=== PATIENT | male | born 1955 | race African-American/Black ===

== ENCOUNTER 2016-10-08 16:31 | Inpatient (IN) | payer OTHER ==
[~2016-10-08] VITALS: Ht 188 cm; Wt 89.4 kg
[~2016-10-08 16:31] MED LIST: ASPI-1035 PO; LOSA25TA12 PO
[2016-10-08] MEDS ORDERED: ASPIRIN 81MG TABLET PO STA (17:15)
[2016-10-08] MEDS ORDERED: FUROSEMIDE 40MG/4ML VIAL IV STA (17:15)
[2016-10-08 17:48] LABS: HEMOGLOBIN. 12.4 g/dL (14.0-18.0); MEAN CORPUSCULAR HEMOGLOBIN 27.7 pg (28.0-32.0); MEAN CORPUSCULAR HGB CONC 30.9 g/dL (31.0-37.0); MEAN CORPUSCULAR VOLUME 89.8 fL (80.0-94.0); MEAN PLATELET VOLUME 7.3 fl (7.4-10.4); PLATELET 210 x1000/uL (130-400); RED BLOOD CELL COUNT 4.45 mill/uL (4.7-6.1); RED CELL DISTRIBUTION WIDTH 18.1 % (11.6-14.6); WHITE BLOOD COUNT 12.2 x1000/uL (4.5-11.0)
[2016-10-08 17:50] LABS: CLARITY URINE CLEAR (CLEAR); COLOR URINE YELLOW (YELLOW); GLUCOSE URINE NEGATIVE (NEGATIVE); KETONES URINE NEGATIVE (NEGATIVE); LEUKOCYTE ESTERASE URINE NEGATIVE (NEGATIVE); NITRITE URINE NEGATIVE (NEGATIVE); OCCULT BLOOD URINE 1+ (NEGATIVE); PH URINE 5.5 (4.5-8.0); PROTEIN URINE 1+ (NEGATIVE); SPECIFIC GRAVITY URINE 1.017 (1.005-1.030)
[2016-10-08 17:51] LABS: DIFFERENTIAL COMMENT 1
[2016-10-08 17:55] LABS: INR 1.5; PARTIAL THROMBOPLASTIN TIME 36.7 sec (24.0-34.0); PROTHROMBIN TIME 15.1 sec
[2016-10-08 18:04] LABS: ALANINE AMINOTRANSFERASE 17 IU/L (13-61); ALBUMIN 3.5 g/dL (3.4-5.0); ANION GAP 14; CALCIUM 8.7 mg/dL (8.5-10.1); CARBON DIOXIDE 26 mEq/L (21-32); CHLORIDE 109 mEq/L (98-107); CREATINE KINASE 98 IU/L (39-308); INDEX HEMOLYSI 1 (1-3); INDEX ICTERIC 1 (1-4); INDEX LIPEMIC 1 (1-3); LIPASE 90 IU/L (73-393); NT PRO B-TYPE NATRIURETIC PEP 1586 pg/mL (5-125); TROPONIN I 0.03 ng/mL (0.00-0.04); UREA NITROGEN BLOOD 28 mg/dL (7-21); eGFR 54 mL/min (>60)
[2016-10-08 18:12] LABS: BACTERIA URINE NONE SEEN; SQUAMOUS EPITHELIAL CELL URINE RARE /lpf (RARE/1+); WBC URINE 0-2 /hpf (0-2)
[2016-10-08 18:18] LABS: ANISOCYTOSIS 1+; PLATELET ESTIMATE NORMAL
[2016-10-08 21:50] VITALS: BP 137/79
[2016-10-08 22:15] VITALS: BP 111/90
[2016-10-08] MEDS ORDERED: NA PHOS,M-B/NA PHOS,DI-BA ENEMA 118ML PR PRN (22:30)
[2016-10-08] MEDS ORDERED: DOCUSATE SODIUM 100MG CAPSULE PO PRN (22:30)
[2016-10-08] MEDS ORDERED: LORAZEPAM 2MG/ML CPJ IV PRN (22:30)
[2016-10-08] MEDS ORDERED: CLONIDINE 0.1MG TABLET PO PRN (22:30)
[2016-10-08] MEDS ORDERED: ACETAMINOPHEN 325MG TABLET PO PRN (22:30)
[2016-10-08] MEDS ORDERED: HYDROCODONE/ACETAMINOPHEN 10/325MG TABLET PO PRN (22:30)
[2016-10-08] MEDS ORDERED: GUAIFENESIN 200MG/10ML SUGAR FREE UDC PO PRN (22:30)
[2016-10-08] MEDS ORDERED: ONDANSETRON HCL 4MG/2ML VIAL IV PRN (22:30)
[2016-10-08] MEDS ORDERED: IPRATROPIUM/ALBUTEROL 0.5-3(2.5)MG/3ML NEB INH PRN (22:30)
[2016-10-08] MEDS ORDERED: MAGNESIUM/ALUMINUM HYDROXIDE/SIMETHICONE 30ML UDC PO PRN (22:30)
[2016-10-08] MEDS ORDERED: HYDROMORPHONE HCL/PF 2MG/ML CPJ IV PRN (22:30)
[2016-10-08] MEDS ORDERED: DIPHENHYDRAMINE 50MG/ML VIAL IV PRN (22:30)
[2016-10-09] MEDS ORDERED: INFLUENZA VIRUS VACCINE 0.5ML SYR IM ONE (02:15)
[2016-10-09] MEDS ORDERED: RIVA10TA PO (02:56)
[2016-10-09] MEDS ORDERED: LISI40TA4 PO (02:56)
[2016-10-09] MEDS ORDERED: DILT120C2 PO (02:56)
[2016-10-09] MEDS ORDERED: FURO-151 PO (02:56)
[2016-10-09] MEDS ORDERED: AMLO2.5T45 PO (02:56)
[2016-10-09] MEDS ORDERED: CARV6.2548 PO (02:56)
[2016-10-09 04:00] VITALS: BP 133/83
[2016-10-09 06:18] LABS: BASOPHILS % 0.6 % (0.0-2.0); EOSINOPHILS % 2.5 % (0.0-5.0); HEMATOCRIT. 37.9 % (42.0-52.0); HEMOGLOBIN. 12.1 g/dL (14.0-18.0); MEAN CORPUSCULAR HEMOGLOBIN 28.6 pg (28.0-32.0); MEAN CORPUSCULAR HGB CONC 31.8 g/dL (31.0-37.0); MEAN CORPUSCULAR VOLUME 89.9 fL (80.0-94.0); MEAN PLATELET VOLUME 7.7 fl (7.4-10.4); MONOCYTES % 8.4 % (2.0-8.0); NEUTROPHILS % 79.5 % (40.0-76.0); PLATELET 175 x1000/uL (130-400); RED BLOOD CELL COUNT 4.22 mill/uL (4.7-6.1); RED CELL DISTRIBUTION WIDTH 17.7 % (11.6-14.6); WHITE BLOOD COUNT 9.3 x1000/uL (4.5-11.0)
[2016-10-09 06:45] LABS: ALANINE AMINOTRANSFERASE 17 IU/L (13-61); ALBUMIN 3.3 g/dL (3.4-5.0); ANION GAP 11; CALCIUM 8.5 mg/dL (8.5-10.1); CARBON DIOXIDE 28 mEq/L (21-32); CHLORIDE 108 mEq/L (98-107); INDEX HEMOLYSI 1 (1-3); INDEX ICTERIC 1 (1-4); INDEX LIPEMIC 1 (1-3); LDL CHOLESTEROL 63 mg/dL (5-100); T4 FREE 1.66 ng/dL (0.76-1.46); TRIGLYCERIDE 43 mg/dL (0-150); TROPONIN I 0.03 ng/mL (0.00-0.04); UREA NITROGEN BLOOD 27 mg/dL (7-21); eGFR > 60 mL/min (>60)
[2016-10-09 06:46] LABS: HDL CHOLESTEROL 52 mg/dL (40-59)
[2016-10-09 06:49] LABS: CLARITY URINE CLEAR (CLEAR); COLOR URINE YELLOW (YELLOW); GLUCOSE URINE NEGATIVE (NEGATIVE); KETONES URINE NEGATIVE (NEGATIVE); LEUKOCYTE ESTERASE URINE NEGATIVE (NEGATIVE); NITRITE URINE NEGATIVE (NEGATIVE); OCCULT BLOOD URINE NEGATIVE (NEGATIVE); PH URINE 5.5 (4.5-8.0); PROTEIN URINE NEGATIVE (NEGATIVE); SPECIFIC GRAVITY URINE 1.023 (1.005-1.030)
[2016-10-09 08:00] VITALS: BP 121/80
[2016-10-09] MEDS: FUROSEMIDE 40MG/4ML VIAL IV SCH ×2 (08:10→16:16)
[2016-10-09] MEDS ORDERED: ASPIRIN 81MG EC TABLET PO SCH (09:00)
[2016-10-09] MEDS ORDERED: ENOXAPARIN 40MG/0.4ML SYR SUBCUT SCH (09:00)
[2016-10-09 12:48] VITALS: BP 100/59
[2016-10-09 16:21] VITALS: BP 130/82
[2016-10-09] MEDS ORDERED: RIVAROXABAN 10 MG TABLET PO SCH (17:00)
[2016-10-09 17:51] VITALS: BP 130/82
[2016-10-09 19:55] VITALS: BP 130/90
[2016-10-09] MEDS ORDERED: CARVEDILOL 3.125 MG TABLET PO SCH (21:00)
== END 2016-10-09 20:05 | DRG 194 ==
LOC: ER 16:54 → 8WST 19:53
PROVIDERS: ADMIT Internal Medicine; ATTEND Internal Medicine
DX: I13.0 Hypertensive heart and chronic kidney disease with heart failure and stage 1 through stage 4 chronic kidney disease, or unspecified chronic kidney disease (principal); I21.3 ST elevation (STEMI) myocardial infarction of unspecified site; N17.0 Acute kidney failure with tubular necrosis; I50.23 Acute on chronic systolic (congestive) heart failure; Z95.1 Presence of aortocoronary bypass graft; I48.1 Persistent atrial fibrillation; E78.5 Hyperlipidemia, unspecified; I25.10 Atherosclerotic heart disease of native coronary artery without angina pectoris; I25.5 Ischemic cardiomyopathy; N18.9 Chronic kidney disease, unspecified; Z79.01 Long term (current) use of anticoagulants; I25.2 Old myocardial infarction; Z95.810 Presence of automatic (implantable) cardiac defibrillator
CPT/HCPCS: 36415; 71010; 76770; 80048; 80053; 80061; 81001; 81003; 82550; 83605; 83690; 83880; 84439; 84443; 84484; 85025; 85610; 85730; 87040; 93005; 93970; 96374; 99285; J1650; J1940

== ENCOUNTER 2016-12-22 17:54 | Inpatient (IN) | payer OTHER ==
[~2016-12-22] VITALS: Ht 185.4 cm; Wt 94.3 kg
[~2016-12-22 17:54] MED LIST changes: +AMLO2.5T45 PO; -ASPI-1035 PO; +ASPI-1159 PO; +CARV6.2548 PO; +DILT120C2 PO; +FURO-151 PO; +LISI40TA4 PO; +RIVA10TA PO
[2016-12-22] MEDS ORDERED: FUROSEMIDE 40MG/4ML VIAL IV STA (18:31)
[2016-12-22] MEDS ORDERED: ALBUTEROL (0.083%) 2.5MG/3ML NEB HHN STA (18:31)
[2016-12-22] MEDS ORDERED: IPRATROPIUM BROMIDE (0.02%) 0.5MG/2.5ML NEB HHN STA (18:31)
[2016-12-22 19:08] LABS: EOSINOPHILS % 2.6 % (0.0-5.0); HEMATOCRIT. 40.6 % (42.0-52.0); HEMOGLOBIN. 12.9 g/dL (14.0-18.0); LYMPHOCYTES % 11.6 % (20.0-50.0); MEAN CORPUSCULAR HEMOGLOBIN 27.3 pg (28.0-32.0); MEAN PLATELET VOLUME 7.4 fl (7.4-10.4); MONOCYTES % 9.8 % (2.0-8.0); PLATELET 214 x1000/uL (130-400); RED BLOOD CELL COUNT 4.72 mill/uL (4.7-6.1); RED CELL DISTRIBUTION WIDTH 18.8 % (11.6-14.6)
[2016-12-22 19:16] LABS: INR 1.1; PARTIAL THROMBOPLASTIN TIME 27.9 sec (24.0-34.0); PROTHROMBIN TIME 11.5 sec
[2016-12-22 19:17] LABS: CHLORIDE 107 mEq/L (98-107)
[2016-12-22 19:24] LABS: CARBON DIOXIDE 30 mEq/L (21-32)
[2016-12-22 19:29] LABS: TROPONIN I 0.03 ng/mL (0.00-0.04)
[2016-12-22 19:31] LABS: GLUCOSE URINE NEGATIVE (NEGATIVE); KETONES URINE NEGATIVE (NEGATIVE); LEUKOCYTE ESTERASE URINE NEGATIVE (NEGATIVE); NITRITE URINE NEGATIVE (NEGATIVE); OCCULT BLOOD URINE NEGATIVE (NEGATIVE); PROTEIN URINE 1+ (NEGATIVE); SPECIFIC GRAVITY URINE 1.016 (1.005-1.030); UROBILINOGEN URINE 0.2 E.U./dL (0.2-1.0)
[2016-12-22 19:39] LABS: CLARITY URINE CLEAR (CLEAR); COLOR URINE YELLOW (YELLOW)
[2016-12-22] MEDS ORDERED: NITROGLYCERIN OINT 1GM/INCH UDPKT TD ONE (19:45)
[2016-12-22 22:17] VITALS: BP 168/91
[2016-12-23] MEDS ORDERED: IPRATROPIUM/ALBUTEROL 0.5-3(2.5)MG/3ML NEB HHN PRN
[2016-12-23 00:25] VITALS: BP 126/75
[2016-12-23 04:00] VITALS: BP 131/86
[2016-12-23 06:26] LABS: BASOPHILS % 0.6 % (0.0-2.0); EOSINOPHILS % 2.4 % (0.0-5.0); HEMATOCRIT. 40.5 % (42.0-52.0); HEMOGLOBIN. 12.7 g/dL (14.0-18.0); MEAN CORPUSCULAR HEMOGLOBIN 27.1 pg (28.0-32.0); MEAN CORPUSCULAR VOLUME 86.3 fL (80.0-94.0); MEAN PLATELET VOLUME 7.6 fl (7.4-10.4); MONOCYTES % 8.9 % (2.0-8.0); NEUTROPHILS % 73.1 % (40.0-76.0); PLATELET 206 x1000/uL (130-400); RED BLOOD CELL COUNT 4.69 mill/uL (4.7-6.1); RED CELL DISTRIBUTION WIDTH 17.9 % (11.6-14.6)
[2016-12-23 07:32] LABS: CREATINE KINASE MB FRACTION 1.6 ng/mL (0.5-3.6); TROPONIN I 0.03 ng/mL (0.00-0.04)
[2016-12-23 08:00] VITALS: BP 125/95
[2016-12-23] MEDS: CARVEDILOL 6.25 MG TABLET PO SCH ×2 (09:32→16:50)
[2016-12-23] MEDS: AMLODIPINE 2.5MG TABLET PO SCH (09:33)
[2016-12-23] MEDS: ASPIRIN 81MG EC TABLET PO SCH (09:34)
[2016-12-23] MEDS: FUROSEMIDE 40MG/4ML VIAL IVP SCH (09:34)
[2016-12-23] MEDS: LISINOPRIL 40MG TABLET PO SCH (09:34)
[2016-12-23] MEDS: DILTIAZEM HCL 120MG CAPSULE CD 24HR PO SCH (09:35)
[2016-12-23] MEDS ORDERED: ACETAMINOPHEN 325MG TABLET PO PRN (10:15)
[2016-12-23 12:00] VITALS: BP 128/85
[2016-12-23 16:00] VITALS: BP 125/85
[2016-12-23] MEDS: RIVAROXABAN 20 MG TABLET PO SCH (16:51)
[2016-12-23 20:00] VITALS: BP 109/74
[2016-12-24] VITALS: BP 105/75
[2016-12-24 01:23] LABS: CREATINE KINASE 45 IU/L (39-308)
[2016-12-24 04:00] VITALS: BP 112/71
[2016-12-24 08:00] VITALS: BP 125/72
[2016-12-24] MEDS: FUROSEMIDE 40MG/4ML VIAL IVP SCH (09:32)
[2016-12-24] MEDS: ASPIRIN 81MG EC TABLET PO SCH (09:33)
[2016-12-24] MEDS: AMLODIPINE 2.5MG TABLET PO SCH (09:33)
[2016-12-24] MEDS: CARVEDILOL 6.25 MG TABLET PO SCH ×2 (09:33→17:36)
[2016-12-24] MEDS: DILTIAZEM HCL 120MG CAPSULE CD 24HR PO SCH (09:33)
[2016-12-24] MEDS: LISINOPRIL 40MG TABLET PO SCH (09:34)
[2016-12-24 12:00] VITALS: BP 106/73
[2016-12-24 16:00] VITALS: BP 112/75
[2016-12-24] MEDS: RIVAROXABAN 20 MG TABLET PO SCH (17:35)
[2016-12-24] MEDS: NAPROXEN 250MG TABLET PO PRN (18:25)
[2016-12-24 20:00] VITALS: BP 111/73
[2016-12-25] VITALS: BP 109/68
[2016-12-25 04:00] VITALS: BP 115/78
[2016-12-25 06:16] LABS: CHLORIDE 102 mEq/L (98-107)
[2016-12-25 06:50] LABS: CARBON DIOXIDE 27 mEq/L (21-32)
[2016-12-25 08:00] VITALS: BP 141/94
[2016-12-25] MEDS: CARVEDILOL 6.25 MG TABLET PO SCH (08:57)
[2016-12-25] MEDS: FUROSEMIDE 40MG/4ML VIAL IVP SCH (08:57)
[2016-12-25] MEDS: ASPIRIN 81MG EC TABLET PO SCH (08:58)
[2016-12-25] MEDS: LISINOPRIL 40MG TABLET PO SCH (08:58)
[2016-12-25] MEDS: DILTIAZEM HCL 120MG CAPSULE CD 24HR PO SCH (08:58)
[2016-12-25] MEDS: AMLODIPINE 2.5MG TABLET PO SCH (08:59)
[2016-12-25 12:00] VITALS: BP 138/90
[2016-12-25] MEDS ORDERED: LOSARTAN POTASSIUM 25 MG TABLET PO SCH ×2 (14:15)
[2016-12-25] MEDS: NAPROXEN 250MG TABLET PO PRN (14:44)
[2016-12-25 15:55] VITALS: BP 138/90
[2016-12-25 16:00] VITALS: BP 133/82
== END 2016-12-25 17:25 | disposition home or self-care (01) | DRG 194 ==
LOC: EDBEDREQ 19:52 → EDBEDREQTM 19:52 → ENRESERV 19:57 → ER 21:12 → 6WST 21:44
PROVIDERS: ADMIT Internal Medicine; ATTEND Internal Medicine
DX: I13.0 Hypertensive heart and chronic kidney disease with heart failure and stage 1 through stage 4 chronic kidney disease, or unspecified chronic kidney disease (principal); I49.5 Sick sinus syndrome; Z95.1 Presence of aortocoronary bypass graft; I48.2 Chronic atrial fibrillation; I25.10 Atherosclerotic heart disease of native coronary artery without angina pectoris; N18.9 Chronic kidney disease, unspecified; I50.23 Acute on chronic systolic (congestive) heart failure; R09.02 Hypoxemia; Z79.01 Long term (current) use of anticoagulants; Z95.0 Presence of cardiac pacemaker; I25.2 Old myocardial infarction; Z86.73 Personal history of transient ischemic attack (TIA), and cerebral infarction without residual deficits; Z86.718 Personal history of other venous thrombosis and embolism
CPT/HCPCS: 36415; 71010; 80048; 80053; 81001; 82550; 82553; 83690; 83880; 84443; 84484; 85025; 85610; 85730; 93005; 93306; 93970; 94640; 96374; 99291; A9556; J1940; J7030; J7611

== ENCOUNTER 2017-07-18 03:03 | Inpatient (IN) | payer OTHER ==
[~2017-07-18] VITALS: Ht 185.4 cm; Wt 97.1 kg
[~2017-07-18 03:03] MED LIST changes: +DILT-26 PO; -DILT120C2 PO
[2017-07-18 04:06] LABS: BASOPHILS % 1.1 % (0.0-2.0); EOSINOPHILS % 1.6 % (0.0-5.0); HEMATOCRIT. 41.5 % (42.0-52.0); HEMOGLOBIN. 13.4 g/dL (14.0-18.0); MEAN CORPUSCULAR HEMOGLOBIN 29.7 pg (28.0-32.0); MEAN CORPUSCULAR VOLUME 92.4 fL (80.0-94.0); MEAN PLATELET VOLUME 7.4 fl (7.4-10.4); MONOCYTES % 8.6 % (2.0-8.0); NEUTROPHILS % 78.7 % (40.0-76.0); PLATELET 192 x1000/uL (130-400); RED BLOOD CELL COUNT 4.49 mill/uL (4.7-6.1); RED CELL DISTRIBUTION WIDTH 18.2 % (11.6-14.6)
[2017-07-18 04:07] LABS: INR 1.3; PROTHROMBIN TIME 13.6 sec (9.4-11.6)
[2017-07-18 04:18] LABS: CARBON DIOXIDE 29 mEq/L (21-32); CHLORIDE 108 mEq/L (98-107); TROPONIN I 0.03 ng/mL (0.00-0.04)
[2017-07-18] MEDS ORDERED: ASPIRIN 81MG TABLET PO ONE (04:30)
[2017-07-18] MEDS ORDERED: FUROSEMIDE 40MG/4ML VIAL IV ONE (04:30)
[2017-07-18 08:50] VITALS: BP 145/96
[2017-07-18] MEDS: ASPIRIN 81MG EC TABLET PO SCH (09:30)
[2017-07-18] MEDS ORDERED: CARVEDILOL 6.25 MG TABLET PO SCH (09:30)
[2017-07-18] MEDS: LISINOPRIL 40MG TABLET PO SCH (09:49)
[2017-07-18] MEDS: DILTIAZEM HCL 120MG CAPSULE CD 24HR PO SCH (09:50)
[2017-07-18] MEDS: IPRATROPIUM/ALBUTEROL 0.5-3(2.5)MG/3ML NEB HHN PRN ×3 (10:05→20:22)
[2017-07-18 12:00] VITALS: BP 116/72
[2017-07-18 16:32] VITALS: BP 105/73
[2017-07-18] MEDS: FUROSEMIDE 40MG/4ML VIAL IVP SCH (17:04)
[2017-07-18] MEDS: RIVAROXABAN 10 MG TABLET PO SCH (17:05)
[2017-07-18 20:00] VITALS: BP 107/84
[2017-07-18] MEDS: CARVEDILOL 12.5MG TABLET PO SCH (21:22)
[2017-07-19] VITALS: BP 121/71
[2017-07-19] MEDS: IPRATROPIUM/ALBUTEROL 0.5-3(2.5)MG/3ML NEB HHN PRN ×5 (00:24→15:40)
[2017-07-19 04:00] VITALS: BP 108/69
[2017-07-19] MEDS: FUROSEMIDE 40MG/4ML VIAL IVP SCH ×2 (06:17→16:23)
[2017-07-19 08:00] VITALS: BP 122/78
[2017-07-19] MEDS: DILTIAZEM HCL 120MG CAPSULE CD 24HR PO SCH (08:49)
[2017-07-19] MEDS: LISINOPRIL 40MG TABLET PO SCH (08:49)
[2017-07-19] MEDS: ASPIRIN 81MG EC TABLET PO SCH (08:50)
[2017-07-19] MEDS: CARVEDILOL 12.5MG TABLET PO SCH (08:50)
[2017-07-19 08:58] LABS: CHLORIDE 108 mEq/L (98-107)
[2017-07-19 09:19] LABS: CARBON DIOXIDE 25 mEq/L (21-32)
[2017-07-19 12:00] VITALS: BP 112/83
[2017-07-19 16:21] VITALS: BP 109/67
[2017-07-19] MEDS: RIVAROXABAN 10 MG TABLET PO SCH (16:24)
[2017-07-19 16:46] VITALS: BP 91/57
[2017-07-19] MEDS ORDERED: CARVEDILOL 25MG TABLET PO SCH (21:00)
[2017-07-19] MEDS ORDERED: INSULIN LISPRO 100 UNITS/ML SUBCUT NR (21:04)
== END 2017-07-19 19:20 | disposition home or self-care (01) | DRG 194 ==
LOC: ER 03:15 → 8WST 04:45 → ENRESERV 07:44
PROVIDERS: ADMIT Internal Medicine; ATTEND Internal Medicine
DX: I13.0 Hypertensive heart and chronic kidney disease with heart failure and stage 1 through stage 4 chronic kidney disease, or unspecified chronic kidney disease (principal); J96.00 Acute respiratory failure, unspecified whether with hypoxia or hypercapnia; N17.0 Acute kidney failure with tubular necrosis; I50.23 Acute on chronic systolic (congestive) heart failure; I42.9 Cardiomyopathy, unspecified; I25.118 Atherosclerotic heart disease of native coronary artery with other forms of angina pectoris; I27.20 Pulmonary hypertension, unspecified; I34.0 Nonrheumatic mitral (valve) insufficiency; I48.2 Chronic atrial fibrillation; N18.9 Chronic kidney disease, unspecified; I35.1 Nonrheumatic aortic (valve) insufficiency; Z95.1 Presence of aortocoronary bypass graft; Z95.0 Presence of cardiac pacemaker; Z86.73 Personal history of transient ischemic attack (TIA), and cerebral infarction without residual deficits; Z79.01 Long term (current) use of anticoagulants; I25.2 Old myocardial infarction; Z79.899 Other long term (current) drug therapy; Z79.82 Long term (current) use of aspirin; Z86.718 Personal history of other venous thrombosis and embolism
CPT/HCPCS: 36415; 71010; 80048; 80053; 83880; 84484; 85025; 85610; 93005; 94640; 94664; 96374; 99285; J1940; J7620

== ENCOUNTER 2018-09-17 00:40 | Emergency (ER) | payer MEDICARE, MEDICAID ==
[~2018-09-17] VITALS: Ht 185.4 cm; Wt 81.0 kg
[~2018-09-17 00:40] MED LIST changes: -AMLO2.5T45 PO; -ASPI-1159 PO; -DILT-26 PO; -FURO-151 PO; +LISI10TA5 PO; -LISI40TA4 PO; -LOSA25TA12 PO; +PANT40TA4 PO; -RIVA10TA PO; +XAR15 PO
[2018-09-17 01:56] LABS: INR 1.1; PARTIAL THROMBOPLASTIN TIME 30.1 sec (23.4-31.0); PROTHROMBIN TIME 10.9 sec (9.1-11.1)
[2018-09-17 02:00] LABS: BASOPHILS % 0.7 % (0.0-2.0); HEMOGLOBIN. 14.3 g/dL (14.0-18.0); LYMPHOCYTES % 8.6 % (20.0-50.0); MEAN CORPUSCULAR HEMOGLOBIN 31.3 pg (28.0-32.0); MEAN CORPUSCULAR VOLUME 98.9 fL (80.0-94.0); MEAN PLATELET VOLUME 6.9 fl (7.4-10.4); MONOCYTES % 13.7 % (2.0-8.0); PLATELET 201 x1000/uL (130-400); RED BLOOD CELL COUNT 4.55 mill/uL (4.7-6.1); RED CELL DISTRIBUTION WIDTH 16.9 % (11.6-14.6)
[2018-09-17 02:02] LABS: CHLORIDE 108 mEq/L (98-107)
[2018-09-17 04:43] VITALS: BP 126/80
== END 2018-09-17 05:04 | disposition home or self-care (01) ==
LOC: ER 00:40
DX: R04.2 Hemoptysis (principal); I11.0 Hypertensive heart disease with heart failure; I50.9 Heart failure, unspecified; I25.2 Old myocardial infarction; Z86.73 Personal history of transient ischemic attack (TIA), and cerebral infarction without residual deficits; Z95.0 Presence of cardiac pacemaker; Z79.899 Other long term (current) drug therapy
CPT/HCPCS: 36415; 71045; 86850; 86900; 93005; 99284

== ENCOUNTER 2018-10-24 20:37 | Inpatient (IN) | payer MEDICARE, MEDICAID ==
[~2018-10-24] VITALS: Ht 182.9 cm; Wt 82.6 kg
[2018-10-24] MEDS ORDERED: ONDANSETRON HCL 4MG/2ML INJ IV STA (21:11)
[2018-10-24] MEDS ORDERED: NITROGLYCERIN OINT 1GM/INCH UDPKT TD ONE (21:15)
[2018-10-24] MEDS ORDERED: ASPIRIN 81MG TABLET PO ONE (21:15)
[2018-10-24] MEDS ORDERED: FUROSEMIDE 40MG/4ML VIAL IV ONE (21:15)
[2018-10-24 21:41] LABS: BG BASE EXCESS -3.8 mmol/L (-2.0-2.0); BG CARBOXYHEMOGLOBIN 0.6 % (0.5-1.5); BG DEOXYHEMOGLOBIN 5.3 % (0.0-5.0); BG FRACTION INSPIRED OXYGEN 36; BG HCO3 ACT 20.1 mmol/L (22.0-26.0); BG METHEMOGLOBIN 0.3 % (0.0-1.5); BG OXYGEN SATURATION 94.7 % (92.0-98.5); BG OXYHEMOGLOBIN 93.8 % (94.0-97.0); BG PCO2 33.1 mmHg (35.0-45.0); BG PH 7.401 (7.350-7.450); BG PO2 83.3 mmHg (75.0-100.0); BG SAMPLE SITE RIGHT RADIAL; BG TOTAL HEMOGLOBIN 13.3 g/dL (12.0-18.0); BG VENT MODE NASAL CANNULA
[2018-10-24 22:38] LABS: BASOPHILS % 0.9 % (0.0-2.0); EOSINOPHILS % 1.1 % (0.0-5.0); HEMOGLOBIN. 13.1 g/dL (14.0-18.0); LYMPHOCYTES % 15.9 % (20.0-50.0); MEAN CORPUSCULAR HEMOGLOBIN 30.4 pg (28.0-32.0); MEAN PLATELET VOLUME 7.5 fl (7.4-10.4); MONOCYTES % 8.6 % (2.0-8.0); NEUTROPHILS % 73.5 % (40.0-76.0); PLATELET 264 x1000/uL (130-400); RED BLOOD CELL COUNT 4.31 mill/uL (4.7-6.1)
[2018-10-24 22:42] LABS: CHLORIDE 111 mEq/L (98-107)
[2018-10-25] VITALS (9 sets, daily range): BP systolic 112–152; BP diastolic 59–113
[2018-10-25] MEDS ORDERED: CLONIDINE 0.1MG TABLET PO PRN (03:45)
[2018-10-25] MEDS ORDERED: KETOROLAC 30MG/ML VIAL IV PRN (03:45)
[2018-10-25 08:23] LABS: CHLORIDE 110 mEq/L (98-107)
[2018-10-25] MEDS: ASPIRIN 81MG TABLET PO SCH (09:20)
[2018-10-25] MEDS: FUROSEMIDE 40MG/4ML VIAL IVP SCH (09:20)
[2018-10-25] MEDS: CARVEDILOL 12.5MG TABLET PO SCH ×2 (09:20→21:00)
[2018-10-25] MEDS: LISINOPRIL 5MG TABLET PO SCH ×2 (09:24→21:01)
[2018-10-25] MEDS: RIVAROXABAN 20 MG TABLET PO SCH (18:14)
[2018-10-26] VITALS (10 sets, daily range): BP systolic 112–138; BP diastolic 73–94
[2018-10-26] MEDS: ASPIRIN 81MG TABLET PO SCH (09:06)
[2018-10-26] MEDS: FUROSEMIDE 40MG/4ML VIAL IVP SCH (09:06)
[2018-10-26] MEDS: CARVEDILOL 12.5MG TABLET PO SCH ×2 (09:07→20:40)
[2018-10-26] MEDS: LISINOPRIL 5MG TABLET PO SCH ×2 (09:07→20:40)
[2018-10-26] MEDS: RIVAROXABAN 20 MG TABLET PO SCH (17:16)
[2018-10-27] VITALS (12 sets, daily range): BP systolic 109–130; BP diastolic 52–86
[2018-10-27] MEDS: FUROSEMIDE 40MG/4ML VIAL IVP SCH (08:08)
[2018-10-27] MEDS: LISINOPRIL 5MG TABLET PO SCH ×2 (08:09→21:57)
[2018-10-27] MEDS: CARVEDILOL 12.5MG TABLET PO SCH ×2 (08:09→21:56)
[2018-10-27] MEDS: ASPIRIN 81MG TABLET PO SCH (08:10)
[2018-10-27] MEDS: CELECOXIB 200MG CAPSULE PO SCH (15:48)
[2018-10-27] MEDS ORDERED: FURO-151 PO (16:02)
[2018-10-27] MEDS ORDERED: RIVA20TA PO (16:02)
[2018-10-27] MEDS ORDERED: LISI-604 PO (16:02)
[2018-10-27] MEDS ORDERED: CARV12.545 PO (16:02)
[2018-10-27] MEDS ORDERED: ROSU10TA PO (16:02)
[2018-10-27] MEDS ORDERED: VALS160T28 PO (16:04)
[2018-10-27] MEDS ORDERED: CLON-457 PO (16:04)
[2018-10-27] MEDS ORDERED: BENZ-16 PO (16:04)
[2018-10-27 16:35] LABS: CHLORIDE 104 mEq/L (98-107)
[2018-10-27] MEDS: RIVAROXABAN 20 MG TABLET PO SCH (17:22)
[2018-10-28] VITALS (12 sets, daily range): BP systolic 103–132; BP diastolic 52–89
[2018-10-28] MEDS: FUROSEMIDE 40MG/4ML VIAL IVP SCH (09:41)
[2018-10-28] MEDS: LISINOPRIL 5MG TABLET PO SCH ×2 (09:42→21:34)
[2018-10-28] MEDS: ASPIRIN 81MG TABLET PO SCH (09:42)
[2018-10-28] MEDS: CELECOXIB 200MG CAPSULE PO SCH (09:42)
[2018-10-28] MEDS: CARVEDILOL 12.5MG TABLET PO SCH ×2 (09:42→21:00)
[2018-10-28] MEDS: RIVAROXABAN 20 MG TABLET PO SCH (17:41)
[2018-10-29] MEDS ORDERED: ASPI-1158 PO (06:28)
[2018-10-29] MEDS ORDERED: LOSA25TA12 PO (06:28)
[2018-10-29] MEDS ORDERED: CLON-457 PO (06:28)
== END 2018-10-28 23:04 | DRG 291 ==
LOC: ER 20:37 → 5EST 23:54 → EDBEDREQTM 23:57 → EDBEDREQ 23:57 → EDBEDREQSVC 23:57 → ENRESERV 10-25 00:07 → UNDODISIN 10-25 18:29
PROVIDERS: ADMIT Internal Medicine; ATTEND Internal Medicine
PROC: 5A09357 Assistance with Respiratory Ventilation, Less than 24 Consecutive Hours, Continuous Positive Airway Pressure (ICD-10-PCS; principal; 2018-10-24)
PROC: 5A09357 Assistance with Respiratory Ventilation, Less than 24 Consecutive Hours, Continuous Positive Airway Pressure (ICD-10-PCS; 2018-10-25)
DX: I11.0 Hypertensive heart disease with heart failure (principal); J96.00 Acute respiratory failure, unspecified whether with hypoxia or hypercapnia; I50.23 Acute on chronic systolic (congestive) heart failure; I25.5 Ischemic cardiomyopathy; I87.2 Venous insufficiency (chronic) (peripheral); I25.10 Atherosclerotic heart disease of native coronary artery without angina pectoris; G47.33 Obstructive sleep apnea (adult) (pediatric); I48.2 Chronic atrial fibrillation; I83.015 Varicose veins of right lower extremity with ulcer other part of foot; L97.519 Non-pressure chronic ulcer of other part of right foot with unspecified severity; R74.0 Nonspecific elevation of levels of transaminase and lactic acid dehydrogenase [LDH]; M17.0 Bilateral primary osteoarthritis of knee; H54.7 Unspecified visual loss; I27.21 Secondary pulmonary arterial hypertension; S90.414A Abrasion, right lesser toe(s), initial encounter; S90.415A Abrasion, left lesser toe(s), initial encounter; X58.XXXA Exposure to other specified factors, initial encounter; Y93.89 Activity, other specified; Y92.89 Other specified places as the place of occurrence of the external cause; Y99.8 Other external cause status; I25.2 Old myocardial infarction; Z86.73 Personal history of transient ischemic attack (TIA), and cerebral infarction without residual deficits; Z95.1 Presence of aortocoronary bypass graft; Z95.810 Presence of automatic (implantable) cardiac defibrillator; Z99.81 Dependence on supplemental oxygen
CPT/HCPCS: 36415; 36600; 71045; 73110; 73120; 73560; 80048; 82375; 82805; 83880; 84484; 93005; 93970; 94660; 96374; 96375; 97162; 97166; 99291; J1940; J2405

== ENCOUNTER 2018-10-28 23:10 | Inpatient (IN) | payer MEDICARE, MEDICAID ==
[~2018-10-28] VITALS: Ht 182.9 cm; Wt 82.5 kg
[2018-10-28 23:10] VITALS: BP 107/75
[~2018-10-28 23:10] MED LIST changes: +BENZ-16 PO; +CARV12.545 PO; -CARV6.2548 PO; +CLON-457 PO; +FURO-151 PO; +LISI-604 PO; -LISI10TA5 PO; -PANT40TA4 PO; +RIVA20TA PO; +ROSU10TA PO; +VALS160T28 PO; -XAR15 PO
[2018-10-28 23:55] VITALS: BP 107/75
[2018-10-29] MEDS ORDERED: CLONIDINE 0.1MG TABLET PO PRN (01:30)
[2018-10-29] MEDS ORDERED: CLON-457 PO (06:28)
[2018-10-29] MEDS ORDERED: ASPI-1158 PO (06:28)
[2018-10-29] MEDS ORDERED: LOSA25TA12 PO (06:28)
[2018-10-29 07:03] LABS: CHLORIDE 108 mEq/L (98-107)
[2018-10-29 08:00] VITALS: BP 129/63
[2018-10-29] MEDS: CELECOXIB 200MG CAPSULE PO SCH (09:02)
[2018-10-29] MEDS: ASPIRIN 81MG TABLET PO SCH (09:02)
[2018-10-29] MEDS: LISINOPRIL 5MG TABLET PO SCH ×2 (09:02→21:00)
[2018-10-29] MEDS: CARVEDILOL 12.5MG TABLET PO SCH ×2 (09:03→21:00)
[2018-10-29] MEDS: FUROSEMIDE 40MG TABLET PO SCH (09:03)
[2018-10-29] MEDS: RIVAROXABAN 20 MG TABLET PO SCH (17:30)
[2018-10-29 20:00] VITALS: BP 105/64
[2018-10-30 08:00] VITALS: BP 94/70
[2018-10-30] MEDS: CARVEDILOL 12.5MG TABLET PO SCH ×2 (09:00→20:34)
[2018-10-30] MEDS: LISINOPRIL 5MG TABLET PO SCH ×2 (09:00→20:34)
[2018-10-30] MEDS: CELECOXIB 200MG CAPSULE PO SCH (09:51)
[2018-10-30] MEDS: FUROSEMIDE 40MG TABLET PO SCH (09:51)
[2018-10-30] MEDS: ASPIRIN 81MG TABLET PO SCH (09:51)
[2018-10-30] MEDS: RIVAROXABAN 20 MG TABLET PO SCH (18:16)
[2018-10-30 20:00] VITALS: BP 105/60
[2018-10-31 08:00] VITALS: BP 140/78
[2018-10-31] MEDS: ASPIRIN 81MG TABLET PO SCH (09:49)
[2018-10-31] MEDS: FUROSEMIDE 40MG TABLET PO SCH (09:49)
[2018-10-31] MEDS: CELECOXIB 200MG CAPSULE PO SCH (09:49)
[2018-10-31] MEDS: CARVEDILOL 12.5MG TABLET PO SCH ×2 (09:50→20:22)
[2018-10-31] MEDS: LISINOPRIL 5MG TABLET PO SCH ×2 (09:50→20:22)
[2018-10-31] MEDS: RIVAROXABAN 20 MG TABLET PO SCH (18:00)
[2018-10-31 20:00] VITALS: BP_SYST 111; BP_SYST 133; BP_DIAS 75; BP_DIAS 94
[2018-11-01 08:00] VITALS: BP 91/56
[2018-11-01] MEDS: LISINOPRIL 5MG TABLET PO SCH ×2 (09:00→22:37)
[2018-11-01] MEDS: CARVEDILOL 12.5MG TABLET PO SCH ×2 (09:00→22:37)
[2018-11-01] MEDS: CELECOXIB 200MG CAPSULE PO SCH (09:05)
[2018-11-01] MEDS: ASPIRIN 81MG TABLET PO SCH (09:05)
[2018-11-01] MEDS: FUROSEMIDE 40MG TABLET PO SCH (09:06)
[2018-11-01] MEDS: RIVAROXABAN 20 MG TABLET PO SCH (16:17)
[2018-11-01 20:00] VITALS: BP 144/89
[2018-11-02 08:00] VITALS: BP 133/93
[2018-11-02] MEDS: LISINOPRIL 5MG TABLET PO SCH ×2 (08:56→21:04)
[2018-11-02] MEDS: FUROSEMIDE 40MG TABLET PO SCH (08:56)
[2018-11-02] MEDS: CELECOXIB 200MG CAPSULE PO SCH (08:56)
[2018-11-02] MEDS: CARVEDILOL 12.5MG TABLET PO SCH ×2 (08:56→21:04)
[2018-11-02] MEDS: ASPIRIN 81MG TABLET PO SCH (09:00)
[2018-11-02] MEDS: HYDROCODONE/ACETAMINOPHEN 5/325MG TABLET PO PRN (14:32)
[2018-11-02] MEDS: RIVAROXABAN 20 MG TABLET PO SCH (16:05)
[2018-11-02 20:00] VITALS: BP 148/89
[2018-11-03 08:00] VITALS: BP 135/81
[2018-11-03] MEDS: FUROSEMIDE 40MG TABLET PO SCH (09:08)
[2018-11-03] MEDS: CELECOXIB 200MG CAPSULE PO SCH (09:08)
[2018-11-03] MEDS: LISINOPRIL 5MG TABLET PO SCH ×2 (09:09→23:08)
[2018-11-03] MEDS: CARVEDILOL 12.5MG TABLET PO SCH ×2 (09:09→22:24)
[2018-11-03] MEDS: ASPIRIN 81MG TABLET PO SCH (09:26)
[2018-11-03] MEDS: RIVAROXABAN 20 MG TABLET PO SCH (17:41)
[2018-11-03 20:00] VITALS: BP 125/81
[2018-11-04 08:00] VITALS: BP 136/91
[2018-11-04] MEDS: FUROSEMIDE 40MG TABLET PO SCH (08:12)
[2018-11-04] MEDS: CELECOXIB 200MG CAPSULE PO SCH (08:12)
[2018-11-04] MEDS: LISINOPRIL 5MG TABLET PO SCH ×2 (08:12→21:57)
[2018-11-04] MEDS: ASPIRIN 81MG TABLET PO SCH (08:12)
[2018-11-04] MEDS: CARVEDILOL 12.5MG TABLET PO SCH ×2 (08:13→21:57)
[2018-11-04] MEDS ORDERED: METOLAZONE 5MG TABLET PO NR (16:15)
[2018-11-04] MEDS: RIVAROXABAN 20 MG TABLET PO SCH (16:20)
[2018-11-04 20:00] VITALS: BP 119/80
[2018-11-05 08:19] VITALS: BP 114/73
[2018-11-05] MEDS: RIVAROXABAN 20 MG TABLET PO SCH (09:18)
[2018-11-05] MEDS: LISINOPRIL 5MG TABLET PO SCH ×2 (09:19→21:27)
[2018-11-05] MEDS: FUROSEMIDE 40MG TABLET PO SCH (09:19)
[2018-11-05] MEDS: ASPIRIN 81MG TABLET PO SCH (09:19)
[2018-11-05 09:20] LABS: CHLORIDE 105 mEq/L (98-107)
[2018-11-05] MEDS: CARVEDILOL 12.5MG TABLET PO SCH ×2 (09:20→21:27)
[2018-11-05] MEDS: CELECOXIB 200MG CAPSULE PO SCH (09:22)
[2018-11-05] MEDS: HYDROCODONE/ACETAMINOPHEN 5/325MG TABLET PO PRN (12:22)
[2018-11-05 20:00] VITALS: BP 123/84
[2018-11-06 08:56] VITALS: BP 96/67
[2018-11-06] MEDS: CARVEDILOL 12.5MG TABLET PO SCH ×2 (09:00→21:20)
[2018-11-06] MEDS: LISINOPRIL 5MG TABLET PO SCH ×2 (09:00→21:20)
[2018-11-06] MEDS: FUROSEMIDE 40MG TABLET PO SCH (09:22)
[2018-11-06] MEDS: CELECOXIB 200MG CAPSULE PO SCH (09:22)
[2018-11-06] MEDS: ASPIRIN 81MG TABLET PO SCH (09:28)
[2018-11-06] MEDS: METOLAZONE 5MG TABLET PO SCH ×2 (15:15→16:11)
[2018-11-06] MEDS: RIVAROXABAN 20 MG TABLET PO SCH (16:10)
[2018-11-06 20:00] VITALS: BP 122/82
[2018-11-07 08:00] VITALS: BP 98/55
[2018-11-07] MEDS: CARVEDILOL 12.5MG TABLET PO SCH ×2 (09:00→21:55)
[2018-11-07] MEDS: LISINOPRIL 5MG TABLET PO SCH ×2 (09:00→21:55)
[2018-11-07] MEDS: ASPIRIN 81MG TABLET PO SCH (10:02)
[2018-11-07] MEDS: CELECOXIB 200MG CAPSULE PO SCH (10:02)
[2018-11-07] MEDS: FUROSEMIDE 40MG TABLET PO SCH (10:02)
[2018-11-07] MEDS: METOLAZONE 5MG TABLET PO SCH (10:04)
[2018-11-07] MEDS: RIVAROXABAN 20 MG TABLET PO SCH (17:30)
[2018-11-07 20:00] VITALS: BP 100/55
[2018-11-08 07:47] LABS: CHLORIDE 101 mEq/L (98-107)
[2018-11-08 08:00] VITALS: BP 95/57
[2018-11-08] MEDS: CELECOXIB 200MG CAPSULE PO SCH (08:52)
[2018-11-08] MEDS: FUROSEMIDE 40MG TABLET PO SCH (08:53)
[2018-11-08] MEDS: ASPIRIN 81MG TABLET PO SCH (08:53)
[2018-11-08] MEDS: METOLAZONE 5MG TABLET PO SCH (08:53)
[2018-11-08] MEDS: LISINOPRIL 5MG TABLET PO SCH ×2 (08:53→20:25)
[2018-11-08] MEDS: CARVEDILOL 12.5MG TABLET PO SCH ×2 (08:53→20:22)
[2018-11-08] MEDS: RIVAROXABAN 20 MG TABLET PO SCH (17:05)
[2018-11-08 20:00] VITALS: BP 100/62
[2018-11-09 08:00] VITALS: BP 124/78
[2018-11-09] MEDS: ASPIRIN 81MG TABLET PO SCH (09:19)
[2018-11-09] MEDS: LISINOPRIL 5MG TABLET PO SCH (09:20)
[2018-11-09] MEDS: METOLAZONE 5MG TABLET PO SCH (09:20)
[2018-11-09] MEDS: CARVEDILOL 12.5MG TABLET PO SCH (09:20)
[2018-11-09] MEDS: CELECOXIB 200MG CAPSULE PO SCH (09:21)
[2018-11-09] MEDS: FUROSEMIDE 40MG TABLET PO SCH (09:21)
[2018-11-09 13:01] VITALS: BP 124/78
== END 2018-11-09 19:00 | disposition home or self-care (01) | DRG 291 ==
LOC: UNDOADMIN 10-29 00:04
PROVIDERS: ADMIT Psychiatry & Neurology Neurology; ATTEND Internal Medicine
DX: I11.0 Hypertensive heart disease with heart failure (principal); J96.00 Acute respiratory failure, unspecified whether with hypoxia or hypercapnia; G47.33 Obstructive sleep apnea (adult) (pediatric); I25.10 Atherosclerotic heart disease of native coronary artery without angina pectoris; I27.20 Pulmonary hypertension, unspecified; I25.5 Ischemic cardiomyopathy; I48.91 Unspecified atrial fibrillation; M13.0 Polyarthritis, unspecified; E87.70 Fluid overload, unspecified; I50.23 Acute on chronic systolic (congestive) heart failure; Z83.3 Family history of diabetes mellitus; Z86.73 Personal history of transient ischemic attack (TIA), and cerebral infarction without residual deficits; Z95.1 Presence of aortocoronary bypass graft; Z95.810 Presence of automatic (implantable) cardiac defibrillator; Z99.81 Dependence on supplemental oxygen; Z79.899 Other long term (current) drug therapy; Z79.82 Long term (current) use of aspirin; Z79.01 Long term (current) use of anticoagulants; I27.22 Pulmonary hypertension due to left heart disease
CPT/HCPCS: 36415; 73130; 80048; 82962; 83735; 97110; 97116; 97150; 97163; 97166; 97530; 97535

== ENCOUNTER 2018-12-19 05:33 | Emergency (ER) | payer MEDICARE, MEDICAID ==
[~2018-12-19] VITALS: Ht 177.8 cm; Wt 77.0 kg
[~2018-12-19 05:33] MED LIST changes: +ASPI-1158 PO; -BENZ-16 PO; +LOSA25TA12 PO; -ROSU10TA PO; -VALS160T28 PO
[2018-12-19 06:22] LABS: CHLORIDE 110 mEq/L (98-107)
[2018-12-19 06:28] LABS: INR 1.4; PARTIAL THROMBOPLASTIN TIME 36.9 sec (23.4-31.0); PROTHROMBIN TIME 14.5 sec (9.6-11.0)
[2018-12-19 06:33] LABS: BASOPHILS % 1.4 % (0.0-2.0); HEMATOCRIT. 37.3 % (42.0-52.0); HEMOGLOBIN. 12.1 g/dL (14.0-18.0); LYMPHOCYTES % 12.1 % (20.0-50.0); MEAN CORPUSCULAR HEMOGLOBIN 30.3 pg (28.0-32.0); MEAN CORPUSCULAR VOLUME 93.6 fL (80.0-94.0); MEAN PLATELET VOLUME 6.8 fl (7.4-10.4); NEUTROPHILS % 72.5 % (40.0-76.0); PLATELET 193 x1000/uL (130-400); RED BLOOD CELL COUNT 3.99 mill/uL (4.7-6.1); RED CELL DISTRIBUTION WIDTH 20.9 % (11.6-14.6)
[2018-12-19] MEDS ORDERED: FUROSEMIDE 20MG/2ML VIAL IVP ONE (06:45)
[2018-12-19 07:09] LABS: CLARITY URINE CLOUDY (CLEAR); COLOR URINE YELLOW (YELLOW); KETONES URINE NEGATIVE (NEGATIVE); LEUKOCYTE ESTERASE URINE TRACE (NEGATIVE); NITRITE URINE NEGATIVE (NEGATIVE); OCCULT BLOOD URINE NEGATIVE (NEGATIVE); PROTEIN URINE 3+ (NEGATIVE); SPECIFIC GRAVITY URINE 1.019 (1.005-1.030)
[2018-12-19 07:25] VITALS: BP 139/95
== END 2018-12-19 07:25 | disposition home or self-care (01) ==
LOC: ER 05:33
DX: R06.00 Dyspnea, unspecified (principal); I11.0 Hypertensive heart disease with heart failure; I50.40 Unspecified combined systolic (congestive) and diastolic (congestive) heart failure; D64.9 Anemia, unspecified; Z86.73 Personal history of transient ischemic attack (TIA), and cerebral infarction without residual deficits
CPT/HCPCS: 36415; 71045; 80053; 81003; 83880; 84484; 85025; 85610; 85730; 93005; 96374; 99284; J1940

== ENCOUNTER 2019-02-25 23:41 | Inpatient (IN) | payer MEDICARE, MEDICAID ==
[~2019-02-25] VITALS: Ht 177.8 cm; Wt 83.9 kg
[~2019-02-25 23:41] MED LIST changes: -LOSA25TA12 PO; +LOSA25TA26 PO
[2019-02-25] MEDS ORDERED: PROPOFOL 10MG/ML 100ML 100 ML IV ONE (23:53)
[2019-02-26] VITALS (51 sets, daily range): BP systolic 86–135; BP diastolic 51–92
[2019-02-26] MEDS ORDERED: PROPOFOL 10MG/ML 100ML 100 ML IV SCH
[2019-02-26] MEDS ORDERED: CEFTRIAXONE 1 G PREMIX 50 ML IV ONE (00:15)
[2019-02-26] MEDS ORDERED: AZITHROMYCIN 500 MG in DEXT 5% WATER 250 ML IV SCH (00:15)
[2019-02-26] MEDS ORDERED: FENTANYL CITRATE/PF 500 MCG in SODIUM CHLORIDE 0.9% 40 ML IV PRN ×3 (00:15→03:45)
[2019-02-26] MEDS ORDERED: SODIUM CHLORIDE 0.9% 1,000 ML IV ONE ×2 (00:30→01:45)
[2019-02-26 01:19] LABS: EOSINOPHILS % 4.4 % (0.0-5.0); HEMATOCRIT. 40.3 % (42.0-52.0); HEMOGLOBIN. 13.2 g/dL (14.0-18.0); LYMPHOCYTES % 7.9 % (20.0-50.0); MEAN CORPUSCULAR HEMOGLOBIN 30.6 pg (28.0-32.0); MEAN CORPUSCULAR VOLUME 93.3 fL (80.0-94.0); MEAN PLATELET VOLUME 7.3 fl (7.4-10.4); NEUTROPHILS % 79.7 % (40.0-76.0); PLATELET 216 x1000/uL (130-400); RED BLOOD CELL COUNT 4.32 mill/uL (4.7-6.1); RED CELL DISTRIBUTION WIDTH 17.4 % (11.6-14.6)
[2019-02-26 01:20] LABS: CHLORIDE 106 mEq/L (98-107)
[2019-02-26 01:23] LABS: BG BASE EXCESS -0.2 mmol/L (-2.0-2.0); BG CARBOXYHEMOGLOBIN 0.3 % (0.5-1.5); BG DEOXYHEMOGLOBIN 0.4 % (0.0-5.0); BG FRACTION INSPIRED OXYGEN 100; BG METHEMOGLOBIN 0.4 % (0.0-1.5); BG OXYGEN SATURATION 99.6 % (92.0-98.5); BG OXYHEMOGLOBIN 98.9 % (94.0-97.0); BG PCO2 37.6 mmHg (35.0-45.0); BG PH 7.423 (7.350-7.450); BG PO2 337.9 mmHg (75.0-100.0); BG SAMPLE SITE RIGHT RADIAL; BG TIDAL VOLUME(mL) 500 mL; BG VENT MODE VENT - A/C; BG VENT RATE 14 set
[2019-02-26 01:24] LABS: INR 1.2
[2019-02-26 01:28] LABS: ETHANOL BLOOD < 10 mg/dL
[2019-02-26 01:59] LABS: CLARITY URINE CLOUDY (CLEAR); COLOR URINE DARK YELLOW (YELLOW); KETONES URINE TRACE (NEGATIVE); LEUKOCYTE ESTERASE URINE 1+ (NEGATIVE); NITRITE URINE NEGATIVE (NEGATIVE); OCCULT BLOOD URINE NEGATIVE (NEGATIVE); PROTEIN URINE 1+ (NEGATIVE); SPECIFIC GRAVITY URINE 1.021 (1.005-1.030)
[2019-02-26] MEDS ORDERED: DIPHENHYDRAMINE 50MG/ML VIAL IV PRN (02:00)
[2019-02-26] MEDS ORDERED: ONDANSETRON HCL 4MG/2ML INJ IV PRN (02:00)
[2019-02-26] MEDS ORDERED: LORAZEPAM 2MG/ML CPJ IV PRN (02:00)
[2019-02-26 02:28] LABS: *AMPHETAMINES SCREEN URINE NEGATIVE (NEGATIVE); *BARBITURATES SCREEN URINE NEGATIVE (NEGATIVE); *BENZODIAZEPINES SCREEN URINE NEGATIVE (NEGATIVE); *COCAINE SCREEN URINE NEGATIVE (NEGATIVE)
[2019-02-26 02:29] LABS: CANNABINOID URINE SCREEN NEGATIVE (NEGATIVE); METHADONE URINE SCREEN NEGATIVE (NEGATIVE); OPIATES URINE SCREEN NEGATIVE (NEGATIVE); PHENCYCLIDINE URINE SCREEN NEGATIVE (NEGATIVE)
[2019-02-26] MEDS: DEXT 5%/0.45% NACL 1000ML 1,000 ML IV SCH (03:43)
[2019-02-26] MEDS ORDERED: PROPOFOL 10MG/ML 100ML 100 ML IV PRN (03:45)
[2019-02-26] MEDS ORDERED: CELE100C MT (04:03)
[2019-02-26] MEDS ORDERED: NOREPINEPHRINE 16 MG in DEXT 5% WATER 234 ML IV PRN (04:15)
[2019-02-26 05:33] LABS: BASOPHILS % 0.9 % (0.0-2.0); EOSINOPHILS % 4.6 % (0.0-5.0); HEMATOCRIT. 36.3 % (42.0-52.0); HEMOGLOBIN. 11.9 g/dL (14.0-18.0); LYMPHOCYTES % 11.1 % (20.0-50.0); MEAN CORPUSCULAR HEMOGLOBIN 30.4 pg (28.0-32.0); MEAN CORPUSCULAR VOLUME 92.8 fL (80.0-94.0); MEAN PLATELET VOLUME 7.1 fl (7.4-10.4); MONOCYTES % 10.6 % (2.0-8.0); NEUTROPHILS % 72.8 % (40.0-76.0); PLATELET 197 x1000/uL (130-400); RED BLOOD CELL COUNT 3.91 mill/uL (4.7-6.1); RED CELL DISTRIBUTION WIDTH 17.4 % (11.6-14.6)
[2019-02-26 07:19] LABS: BG BASE EXCESS -0.3 mmol/L (-2.0-2.0); BG CARBOXYHEMOGLOBIN 0.3 % (0.5-1.5); BG DEOXYHEMOGLOBIN 1.3 % (0.0-5.0); BG HCO3 ACT 24.9 mmol/L (22.0-26.0); BG METHEMOGLOBIN 0.2 % (0.0-1.5); BG OXYGEN SATURATION 98.7 % (92.0-98.5); BG OXYHEMOGLOBIN 98.2 % (94.0-97.0); BG PH 7.381 (7.350-7.450); BG PO2 162.3 mmHg (75.0-100.0); BG SAMPLE SITE RIGHT RADIAL; BG TIDAL VOLUME(mL) 500 mL; BG VENT MODE VENT - A/C; BG VENT RATE 14 set
[2019-02-26] MEDS: FAMOTIDINE 20MG/2ML VIAL IV SCH ×2 (10:21→21:04)
[2019-02-26] MEDS: FUROSEMIDE 40MG/4ML VIAL IVP SCH (12:03)
[2019-02-26] MEDS: ENOXAPARIN 80MG/0.8ML SYR SUBCUT SCH ×2 (12:03→21:48)
[2019-02-26] MEDS ORDERED: POTASSIUM CHLORIDE 20MEQ/PACKET NG NR (16:00)
[2019-02-26] MEDS ORDERED: POTASSIUM CHLORIDE 20MEQ TABLET SR PO ONE (16:00)
[2019-02-26] MEDS: IPRATROPIUM/ALBUTEROL 0.5-3(2.5)MG/3ML NEB INH PRN (19:45)
[2019-02-26] MEDS: FENTANYL CITRATE/PF 500 MCG in SODIUM CHLORIDE 0.9% 40 ML IV PRN (22:30)
[2019-02-26] MEDS ORDERED: SUCCINYLCHOLINE CHLORIDE 200MG/10ML IV ONE ×2 (23:42)
[2019-02-26] MEDS ORDERED: ETOMIDATE 2MG/ML 10ML VIAL IV ONE ×2 (23:42)
[2019-02-27] VITALS (50 sets, daily range): BP systolic 98–161; BP diastolic 57–100
[2019-02-27] MEDS: DEXT 5%/0.45% NACL 1000ML 1,000 ML IV SCH ×2 (00:25→20:49)
[2019-02-27] MEDS: IPRATROPIUM/ALBUTEROL 0.5-3(2.5)MG/3ML NEB INH PRN ×5 (03:53→20:07)
[2019-02-27 08:23] LABS: BASOPHILS % 1.2 % (0.0-2.0); EOSINOPHILS % 1.8 % (0.0-5.0); HEMATOCRIT. 39.8 % (42.0-52.0); HEMOGLOBIN. 13.1 g/dL (14.0-18.0); LYMPHOCYTES % 7.7 % (20.0-50.0); MEAN CORPUSCULAR HEMOGLOBIN 31.1 pg (28.0-32.0); MEAN CORPUSCULAR VOLUME 94.7 fL (80.0-94.0); MEAN PLATELET VOLUME 7.5 fl (7.4-10.4); MONOCYTES % 9.5 % (2.0-8.0); NEUTROPHILS % 79.8 % (40.0-76.0); PLATELET 174 x1000/uL (130-400); RED CELL DISTRIBUTION WIDTH 17.2 % (11.6-14.6)
[2019-02-27 08:26] LABS: CHLORIDE 107 mEq/L (98-107)
[2019-02-27] MEDS: ENOXAPARIN 80MG/0.8ML SYR SUBCUT SCH ×2 (09:05→20:55)
[2019-02-27] MEDS: FAMOTIDINE 20MG/2ML VIAL IV SCH ×2 (09:05→20:48)
[2019-02-27] MEDS: FUROSEMIDE 40MG/4ML VIAL IVP SCH (09:59)
[2019-02-27] MEDS: FENTANYL CITRATE/PF 500 MCG in SODIUM CHLORIDE 0.9% 40 ML IV PRN ×2 (12:30→22:51)
[2019-02-27 16:29] LABS: BG BASE EXCESS 0.6 mmol/L (-2.0-2.0); BG CARBOXYHEMOGLOBIN 0.6 % (0.5-1.5); BG DEOXYHEMOGLOBIN 1.2 % (0.0-5.0); BG FRACTION INSPIRED OXYGEN 40; BG HCO3 ACT 23.8 mmol/L (22.0-26.0); BG METHEMOGLOBIN 0.4 % (0.0-1.5); BG OXYGEN SATURATION 98.8 % (92.0-98.5); BG OXYHEMOGLOBIN 97.8 % (94.0-97.0); BG PCO2 33.7 mmHg (35.0-45.0); BG PH 7.466 (7.350-7.450); BG PO2 137.7 mmHg (75.0-100.0); BG SAMPLE SITE RIGHT BRACHIAL; BG TIDAL VOLUME(mL) 500 mL; BG VENT MODE VENT - A/C; BG VENT RATE 14 set
[2019-02-27] MEDS ORDERED: ENALAPRIL 1.25MG/ML VIAL 1ML IV PRN (20:00)
[2019-02-28] VITALS (44 sets, daily range): BP systolic 107–159; BP diastolic 53–97
[2019-02-28] MEDS ORDERED: FUROSEMIDE 40MG/4ML VIAL IVP NR (01:00)
[2019-02-28 05:25] LABS: HEMATOCRIT. 42.6 % (42.0-52.0); HEMOGLOBIN. 13.7 g/dL (14.0-18.0); MEAN CORPUSCULAR HEMOGLOBIN 30.2 pg (28.0-32.0); MEAN CORPUSCULAR VOLUME 93.7 fL (80.0-94.0); MEAN PLATELET VOLUME 7.2 fl (7.4-10.4); PLATELET 204 x1000/uL (130-400); RED BLOOD CELL COUNT 4.54 mill/uL (4.7-6.1)
[2019-02-28 05:28] LABS: CHLORIDE 104 mEq/L (98-107)
[2019-02-28 08:00] LABS: PLATELET ESTIMATE NORMAL
[2019-02-28] MEDS: IPRATROPIUM/ALBUTEROL 0.5-3(2.5)MG/3ML NEB INH PRN (08:16)
[2019-02-28 08:31] LABS: BG BASE EXCESS 2.7 mmol/L (-2.0-2.0); BG CARBOXYHEMOGLOBIN 0.8 % (0.5-1.5); BG DEOXYHEMOGLOBIN 1.8 % (0.0-5.0); BG FRACTION INSPIRED OXYGEN 40; BG HCO3 ACT 25.5 mmol/L (22.0-26.0); BG METHEMOGLOBIN 0.4 % (0.0-1.5); BG OXYGEN SATURATION 98.2 % (92.0-98.5); BG PH 7.493 (7.350-7.450); BG PO2 104.9 mmHg (75.0-100.0); BG SAMPLE SITE RIGHT RADIAL; BG TIDAL VOLUME(mL) 500 mL; BG TOTAL HEMOGLOBIN 15.4 g/dL (12.0-18.0); BG VENT MODE VENT - A/C; BG VENT RATE 14 set
[2019-02-28] MEDS: FUROSEMIDE 40MG/4ML VIAL IVP SCH (08:39)
[2019-02-28] MEDS: FAMOTIDINE 20MG/2ML VIAL IV SCH ×2 (08:39→21:03)
[2019-02-28] MEDS: ENOXAPARIN 80MG/0.8ML SYR SUBCUT SCH ×2 (08:39→21:03)
[2019-02-28] MEDS ORDERED: KCL 20MEQ/100ML PREMIX 100 ML IV SCH (09:00)
[2019-02-28] MEDS ORDERED: MAGNESIUM 2 G PREMIX 50 ML IV SCH (12:00)
[2019-02-28] MEDS: IPRATROPIUM/ALBUTEROL 0.5-3(2.5)MG/3ML NEB HHN SCH ×3 (12:15→20:18)
[2019-02-28] MEDS ORDERED: POTASSIUM CHLORIDE INJ 40 MEQ in DEXT 5% WATER 250 ML IV SCH (12:30)
[2019-02-28] MEDS ORDERED: IOHEXOL-350 100 ML BOTTLE ONE (14:26)
[2019-02-28] MEDS: CEFTRIAXONE 1 G PREMIX 50 ML IV SCH (14:53)
[2019-02-28] MEDS: AZITHROMYCIN 500 MG in DEXT 5% WATER 250 ML IV SCH (16:27)
[2019-02-28] MEDS: DEXT 5%/0.45% NACL 1000ML 1,000 ML IV SCH (16:28)
[2019-02-28] MEDS ORDERED: LORAZEPAM 2MG/ML CPJ IV NR (23:10)
[2019-03-01] VITALS (57 sets, daily range): BP systolic 84–146; BP diastolic 49–104
[2019-03-01] MEDS: IPRATROPIUM/ALBUTEROL 0.5-3(2.5)MG/3ML NEB HHN SCH ×6 (00:40→20:24)
[2019-03-01] MEDS: LORAZEPAM 2MG/ML CPJ IV PRN ×2 (02:06→09:45)
[2019-03-01 05:30] LABS: HEMOGLOBIN. 13.9 g/dL (14.0-18.0); MEAN CORPUSCULAR HEMOGLOBIN 30.5 pg (28.0-32.0); MEAN CORPUSCULAR VOLUME 94.3 fL (80.0-94.0); MEAN PLATELET VOLUME 7.8 fl (7.4-10.4); PLATELET 219 x1000/uL (130-400); RED BLOOD CELL COUNT 4.56 mill/uL (4.7-6.1)
[2019-03-01 05:35] LABS: CHLORIDE 102 mEq/L (98-107)
[2019-03-01 07:21] LABS: BG BASE EXCESS 1.1 mmol/L (-2.0-2.0); BG CARBOXYHEMOGLOBIN 0.7 % (0.5-1.5); BG FRACTION INSPIRED OXYGEN 35; BG HCO3 ACT 23.8 mmol/L (22.0-26.0); BG METHEMOGLOBIN 0.3 % (0.0-1.5); BG PCO2 32.2 mmHg (35.0-45.0); BG PH 7.486 (7.350-7.450); BG PO2 147.2 mmHg (75.0-100.0); BG SAMPLE SITE RIGHT BRACHIAL; BG TIDAL VOLUME(mL) 500 mL; BG TOTAL HEMOGLOBIN 14.6 g/dL (12.0-18.0); BG VENT MODE VENT - A/C; BG VENT RATE 12 set
[2019-03-01] MEDS: FAMOTIDINE 20MG/2ML VIAL IV SCH ×2 (08:23→21:44)
[2019-03-01] MEDS: FUROSEMIDE 40MG/4ML VIAL IVP SCH (08:23)
[2019-03-01] MEDS: ENOXAPARIN 80MG/0.8ML SYR SUBCUT SCH ×2 (08:23→21:44)
[2019-03-01 08:37] LABS: PLATELET ESTIMATE NORMAL
[2019-03-01] MEDS: DEXT 5%/0.45% NACL 1000ML 1,000 ML IV SCH (12:01)
[2019-03-01] MEDS: CEFTRIAXONE 1 G PREMIX 50 ML IV SCH (13:29)
[2019-03-01] MEDS: FENTANYL CITRATE/PF 500 MCG in SODIUM CHLORIDE 0.9% 40 ML IV PRN (13:30)
[2019-03-01] MEDS: AZITHROMYCIN 500 MG in DEXT 5% WATER 250 ML IV SCH (14:27)
[2019-03-01] MEDS: MIDAZOLAM HCL 50 MG in DEXTROSE 5% WATER 40 ML IV PRN (16:35)
[2019-03-02] VITALS (50 sets, daily range): BP systolic 80–117; BP diastolic 45–75
[2019-03-02] MEDS: IPRATROPIUM/ALBUTEROL 0.5-3(2.5)MG/3ML NEB HHN SCH ×5 (00:06→20:17)
[2019-03-02 05:35] LABS: CHLORIDE 103 mEq/L (98-107)
[2019-03-02 05:50] LABS: HEMATOCRIT. 37.2 % (42.0-52.0); HEMOGLOBIN. 12.1 g/dL (14.0-18.0); MEAN CORPUSCULAR HEMOGLOBIN 30.1 pg (28.0-32.0); MEAN CORPUSCULAR VOLUME 92.4 fL (80.0-94.0); MEAN PLATELET VOLUME 7.7 fl (7.4-10.4); PLATELET 193 x1000/uL (130-400); RED BLOOD CELL COUNT 4.02 mill/uL (4.7-6.1); RED CELL DISTRIBUTION WIDTH 16.8 % (11.6-14.6)
[2019-03-02 08:22] LABS: ATYPICAL LYMPHOCYTES 1; PLATELET ESTIMATE NORMAL
[2019-03-02] MEDS: FUROSEMIDE 40MG/4ML VIAL IVP SCH (09:03)
[2019-03-02] MEDS: FAMOTIDINE 20MG/2ML VIAL IV SCH ×2 (09:03→20:47)
[2019-03-02] MEDS: ENOXAPARIN 80MG/0.8ML SYR SUBCUT SCH ×2 (09:04→20:49)
[2019-03-02] MEDS: DEXT 5%/0.45% NACL 1000ML 1,000 ML IV SCH (10:06)
[2019-03-02] MEDS: LEVOFLOXACIN 500MG PREMIX 100 ML IV SCH (12:28)
[2019-03-02] MEDS: MIDAZOLAM HCL 50 MG in DEXTROSE 5% WATER 40 ML IV PRN (12:46)
[2019-03-02] MEDS ORDERED: BISACODYL 10MG SUPP PR PRN (14:45)
[2019-03-02] MEDS ORDERED: LACTULOSE 20G/30ML UDC PO NR (15:00)
[2019-03-02] MEDS: FENTANYL CITRATE/PF 500 MCG in SODIUM CHLORIDE 0.9% 40 ML IV PRN ×3 (15:39)
[2019-03-02] MEDS: DOCUSATE SODIUM SUGAR FREE 100MG/10ML UDC NG SCH (16:03)
[2019-03-02] MEDS: METOCLOPRAMIDE HCL 10MG/2ML VIAL IV SCH (23:10)
[2019-03-03] VITALS (76 sets, daily range): BP systolic 81–141; BP diastolic 52–94
[2019-03-03] MEDS: IPRATROPIUM/ALBUTEROL 0.5-3(2.5)MG/3ML NEB HHN SCH ×6 (00:01→20:14)
[2019-03-03] MEDS: METOCLOPRAMIDE HCL 10MG/2ML VIAL IV SCH ×4 (05:15→23:33)
[2019-03-03 05:49] LABS: HEMOGLOBIN. 11.7 g/dL (14.0-18.0); MEAN CORPUSCULAR HEMOGLOBIN 30.3 pg (28.0-32.0); MEAN PLATELET VOLUME 8.3 fl (7.4-10.4); PLATELET 235 x1000/uL (130-400); RED BLOOD CELL COUNT 3.87 mill/uL (4.7-6.1)
[2019-03-03 06:04] LABS: CHLORIDE 104 mEq/L (98-107)
[2019-03-03 07:23] LABS: PLATELET ESTIMATE NORMAL
[2019-03-03 08:06] LABS: BG BASE EXCESS 0.7 mmol/L (-2.0-2.0); BG CARBOXYHEMOGLOBIN 0.6 % (0.5-1.5); BG DEOXYHEMOGLOBIN 2.3 % (0.0-5.0); BG FRACTION INSPIRED OXYGEN 28; BG HCO3 ACT 24.8 mmol/L (22.0-26.0); BG METHEMOGLOBIN 0.3 % (0.0-1.5); BG OXYGEN SATURATION 97.7 % (92.0-98.5); BG OXYHEMOGLOBIN 96.8 % (94.0-97.0); BG PCO2 38.2 mmHg (35.0-45.0); BG PH 7.431 (7.350-7.450); BG PO2 101.5 mmHg (75.0-100.0); BG SAMPLE SITE RIGHT RADIAL; BG TIDAL VOLUME(mL) 500 mL; BG TOTAL HEMOGLOBIN 12.5 g/dL (12.0-18.0); BG VENT MODE VENT - A/C; BG VENT RATE 12 set
[2019-03-03] MEDS: FAMOTIDINE 20MG/2ML VIAL IV SCH ×2 (09:01→21:27)
[2019-03-03] MEDS: DOCUSATE SODIUM SUGAR FREE 100MG/10ML UDC NG SCH (09:01)
[2019-03-03] MEDS: ENOXAPARIN 80MG/0.8ML SYR SUBCUT SCH ×2 (09:02→21:27)
[2019-03-03] MEDS: LEVOFLOXACIN 500MG PREMIX 100 ML IV SCH (11:39)
[2019-03-03] MEDS ORDERED: LIDOCAINE HCL 1% 20ML VIAL (Pyxis) INJ ONE (12:56)
[2019-03-04] VITALS (61 sets, daily range): BP systolic 97–172; BP diastolic 61–113
[2019-03-04] MEDS: IPRATROPIUM/ALBUTEROL 0.5-3(2.5)MG/3ML NEB HHN SCH ×6 (00:09→20:26)
[2019-03-04] MEDS: METOCLOPRAMIDE HCL 10MG/2ML VIAL IV SCH ×4 (05:02→23:48)
[2019-03-04 06:06] LABS: HEMATOCRIT. 37.1 % (42.0-52.0); HEMOGLOBIN. 12.3 g/dL (14.0-18.0); MEAN CORPUSCULAR HEMOGLOBIN 30.5 pg (28.0-32.0); MEAN CORPUSCULAR VOLUME 91.9 fL (80.0-94.0); MEAN PLATELET VOLUME 7.8 fl (7.4-10.4); PLATELET 228 x1000/uL (130-400); RED BLOOD CELL COUNT 4.03 mill/uL (4.7-6.1); RED CELL DISTRIBUTION WIDTH 16.8 % (11.6-14.6)
[2019-03-04 06:13] LABS: CHLORIDE 105 mEq/L (98-107)
[2019-03-04] MEDS: FAMOTIDINE 20MG/2ML VIAL IV SCH ×2 (08:56→21:26)
[2019-03-04] MEDS: DOCUSATE SODIUM SUGAR FREE 100MG/10ML UDC NG SCH (08:57)
[2019-03-04] MEDS: ENOXAPARIN 80MG/0.8ML SYR SUBCUT SCH ×2 (08:57→21:26)
[2019-03-04] MEDS: LEVOFLOXACIN 500MG PREMIX 100 ML IV SCH (11:23)
[2019-03-04 11:38] LABS: PLATELET ESTIMATE NORMAL
[2019-03-05] VITALS (51 sets, daily range): BP systolic 92–156; BP diastolic 52–108
[2019-03-05] MEDS: IPRATROPIUM/ALBUTEROL 0.5-3(2.5)MG/3ML NEB HHN SCH ×7 (00:19→23:45)
[2019-03-05] MEDS: METOCLOPRAMIDE HCL 10MG/2ML VIAL IV SCH ×4 (05:27→23:28)
[2019-03-05 06:13] LABS: HEMATOCRIT. 36.9 % (42.0-52.0); HEMOGLOBIN. 12.3 g/dL (14.0-18.0); MEAN CORPUSCULAR HEMOGLOBIN 30.6 pg (28.0-32.0); MEAN CORPUSCULAR VOLUME 92.3 fL (80.0-94.0); PLATELET 241 x1000/uL (130-400); RED CELL DISTRIBUTION WIDTH 16.7 % (11.6-14.6)
[2019-03-05 06:15] LABS: CHLORIDE 106 mEq/L (98-107)
[2019-03-05 08:15] LABS: PLATELET ESTIMATE NORMAL
[2019-03-05] MEDS: ENOXAPARIN 80MG/0.8ML SYR SUBCUT SCH ×2 (08:16→21:15)
[2019-03-05] MEDS: FAMOTIDINE 20MG/2ML VIAL IV SCH ×2 (08:16→21:15)
[2019-03-05] MEDS: DOCUSATE SODIUM SUGAR FREE 100MG/10ML UDC NG SCH (08:16)
[2019-03-05] MEDS: AMPICILLIN 1,000 MG in SODIUM CHLORIDE 0.9% 50 ML IV SCH ×3 (12:18→23:28)
[2019-03-06] VITALS (46 sets, daily range): BP systolic 95–152; BP diastolic 52–116
[2019-03-06] MEDS: IPRATROPIUM/ALBUTEROL 0.5-3(2.5)MG/3ML NEB HHN SCH ×5 (04:01→20:20)
[2019-03-06] MEDS: METOCLOPRAMIDE HCL 10MG/2ML VIAL IV SCH ×4 (06:05→23:37)
[2019-03-06] MEDS: AMPICILLIN 1,000 MG in SODIUM CHLORIDE 0.9% 50 ML IV SCH ×4 (06:05→23:37)
[2019-03-06 09:14] LABS: BG CARBOXYHEMOGLOBIN 0.2 % (0.5-1.5); BG DEOXYHEMOGLOBIN 1.7 % (0.0-5.0); BG FRACTION INSPIRED OXYGEN 28; BG HCO3 ACT 24.7 mmol/L (22.0-26.0); BG METHEMOGLOBIN 0.3 % (0.0-1.5); BG OXYGEN SATURATION 98.3 % (92.0-98.5); BG OXYHEMOGLOBIN 97.8 % (94.0-97.0); BG PCO2 32.9 mmHg (35.0-45.0); BG PH 7.494 (7.350-7.450); BG SAMPLE SITE RIGHT RADIAL; BG TIDAL VOLUME(mL) 500 mL; BG TOTAL HEMOGLOBIN 12.9 g/dL (12.0-18.0); BG VENT MODE VENT - A/C; BG VENT RATE 12 set
[2019-03-06] MEDS: FAMOTIDINE 20MG/2ML VIAL IV SCH ×2 (09:17→20:01)
[2019-03-06] MEDS: DOCUSATE SODIUM SUGAR FREE 100MG/10ML UDC NG SCH (09:17)
[2019-03-06] MEDS: ENOXAPARIN 80MG/0.8ML SYR SUBCUT SCH ×2 (09:17→20:01)
[2019-03-06] MEDS: LORAZEPAM 2MG/ML CPJ IV PRN (14:11)
[2019-03-06] MEDS: ACETAMINOPHEN 650MG/20.3ML UDC NG PRN (20:01)
[2019-03-07] VITALS (48 sets, daily range): BP systolic 101–162; BP diastolic 48–98
[2019-03-07] MEDS: IPRATROPIUM/ALBUTEROL 0.5-3(2.5)MG/3ML NEB HHN SCH ×6 (00:50→20:22)
[2019-03-07] MEDS: LORAZEPAM 2MG/ML CPJ IV PRN ×3 (01:28→11:47)
[2019-03-07] MEDS: AMPICILLIN 1,000 MG in SODIUM CHLORIDE 0.9% 50 ML IV SCH ×3 (05:51→17:18)
[2019-03-07] MEDS: METOCLOPRAMIDE HCL 10MG/2ML VIAL IV SCH ×3 (05:51→17:18)
[2019-03-07 06:02] LABS: BASOPHILS % 0.8 % (0.0-2.0); EOSINOPHILS % 0.9 % (0.0-5.0); HEMATOCRIT. 33.9 % (42.0-52.0); HEMOGLOBIN. 11.3 g/dL (14.0-18.0); LYMPHOCYTES % 8.8 % (20.0-50.0); MEAN CORPUSCULAR HEMOGLOBIN 30.9 pg (28.0-32.0); MEAN CORPUSCULAR VOLUME 92.7 fL (80.0-94.0); MEAN PLATELET VOLUME 7.6 fl (7.4-10.4); NEUTROPHILS % 79.5 % (40.0-76.0); PLATELET 298 x1000/uL (130-400); RED BLOOD CELL COUNT 3.65 mill/uL (4.7-6.1); RED CELL DISTRIBUTION WIDTH 17.3 % (11.6-14.6)
[2019-03-07 06:07] LABS: CHLORIDE 113 mEq/L (98-107)
[2019-03-07] MEDS: FAMOTIDINE 20MG/2ML VIAL IV SCH ×2 (09:42→21:57)
[2019-03-07] MEDS: DOCUSATE SODIUM SUGAR FREE 100MG/10ML UDC NG SCH (09:42)
[2019-03-07] MEDS: ENOXAPARIN 80MG/0.8ML SYR SUBCUT SCH ×2 (09:42→21:58)
[2019-03-07 10:35] LABS: BG BASE EXCESS 4.4 mmol/L (-2.0-2.0); BG CARBOXYHEMOGLOBIN 0.2 % (0.5-1.5); BG DEOXYHEMOGLOBIN 2.1 % (0.0-5.0); BG FRACTION INSPIRED OXYGEN 28; BG HCO3 ACT 28.3 mmol/L (22.0-26.0); BG METHEMOGLOBIN 0.2 % (0.0-1.5); BG OXYGEN SATURATION 97.9 % (92.0-98.5); BG OXYHEMOGLOBIN 97.5 % (94.0-97.0); BG PCO2 39.6 mmHg (35.0-45.0); BG PH 7.472 (7.350-7.450); BG PO2 108.2 mmHg (75.0-100.0); BG PRESSURE SUPPORT 12; BG SAMPLE SITE RIGHT RADIAL; BG TIDAL VOLUME(mL) 500 mL; BG TOTAL HEMOGLOBIN 12.2 g/dL (12.0-18.0); BG VENT MODE VENT - SIMV; BG VENT RATE 10 set
[2019-03-07] MEDS ORDERED: DEXT 5% WATER + KCL 40MEQ/L 1,000 ML IV SCH (11:00)
[2019-03-07] MEDS: POTASSIUM CHLORIDE INJ 40 MEQ in DEXTROSE 5% WATER 1,000 ML IV SCH (11:33)
[2019-03-07] MEDS: ACETAMINOPHEN 650MG/20.3ML UDC NG PRN (11:59)
[2019-03-08] VITALS (26 sets, daily range): BP systolic 92–158; BP diastolic 40–126
[2019-03-08] MEDS: POTASSIUM CHLORIDE INJ 40 MEQ in DEXTROSE 5% WATER 1,000 ML IV SCH ×2 (00:25→16:11)
[2019-03-08] MEDS: AMPICILLIN 1,000 MG in SODIUM CHLORIDE 0.9% 50 ML IV SCH ×4 (00:25→18:12)
[2019-03-08] MEDS: METOCLOPRAMIDE HCL 10MG/2ML VIAL IV SCH ×4 (00:25→18:12)
[2019-03-08] MEDS: IPRATROPIUM/ALBUTEROL 0.5-3(2.5)MG/3ML NEB HHN SCH ×6 (01:12→20:06)
[2019-03-08 05:26] LABS: BASOPHILS % 0.7 % (0.0-2.0); EOSINOPHILS % 2.8 % (0.0-5.0); HEMATOCRIT. 35.2 % (42.0-52.0); HEMOGLOBIN. 11.4 g/dL (14.0-18.0); LYMPHOCYTES % 10.8 % (20.0-50.0); MEAN CORPUSCULAR HEMOGLOBIN 30.3 pg (28.0-32.0); MEAN PLATELET VOLUME 7.7 fl (7.4-10.4); MONOCYTES % 9.5 % (2.0-8.0); NEUTROPHILS % 76.2 % (40.0-76.0); PLATELET 277 x1000/uL (130-400); RED BLOOD CELL COUNT 3.75 mill/uL (4.7-6.1); RED CELL DISTRIBUTION WIDTH 17.6 % (11.6-14.6)
[2019-03-08 05:33] LABS: CHLORIDE 112 mEq/L (98-107)
[2019-03-08] MEDS: DOCUSATE SODIUM SUGAR FREE 100MG/10ML UDC NG SCH (09:13)
[2019-03-08] MEDS: FAMOTIDINE 20MG/2ML VIAL IV SCH ×2 (09:13→22:40)
[2019-03-08] MEDS: ENOXAPARIN 80MG/0.8ML SYR SUBCUT SCH ×2 (09:14→21:00)
[2019-03-08 15:29] LABS: INR 1.1; PROTHROMBIN TIME 11.6 sec (9.6-11.0)
[2019-03-08] MEDS: LORAZEPAM 2MG/ML CPJ IV PRN (22:40)
[2019-03-09] VITALS (45 sets, daily range): BP systolic 88–180; BP diastolic 60–111
[2019-03-09] MEDS: IPRATROPIUM/ALBUTEROL 0.5-3(2.5)MG/3ML NEB HHN SCH ×6 (00:11→20:13)
[2019-03-09] MEDS: AMPICILLIN 1,000 MG in SODIUM CHLORIDE 0.9% 50 ML IV SCH ×5 (00:26→23:18)
[2019-03-09] MEDS: METOCLOPRAMIDE HCL 10MG/2ML VIAL IV SCH ×4 (00:28→17:33)
[2019-03-09] MEDS: POTASSIUM CHLORIDE INJ 40 MEQ in DEXTROSE 5% WATER 1,000 ML IV SCH ×2 (04:15→17:33)
[2019-03-09 05:27] LABS: HEMATOCRIT 37.2 % (42.0-52.0); MEAN CORPUSCULAR HEMOGLOBIN 30.2 pg (28.0-32.0); MEAN CORPUSCULAR VOLUME 93.8 fL (80.0-94.0); PLATELET 360 x1000/uL (130-400); RED BLOOD CELL COUNT 3.96 mill/uL (4.7-6.1); RED CELL DISTRIBUTION WIDTH 17.6 % (11.6-14.6)
[2019-03-09 05:31] LABS: INR 1.1; PARTIAL THROMBOPLASTIN TIME 32.2 sec (23.4-31.0); PROTHROMBIN TIME 11.7 sec (9.6-11.0)
[2019-03-09 05:53] LABS: CHLORIDE 109 mEq/L (98-107)
[2019-03-09] MEDS: FAMOTIDINE 20MG/2ML VIAL IV SCH ×2 (08:22→23:18)
[2019-03-09] MEDS: DOCUSATE SODIUM SUGAR FREE 100MG/10ML UDC NG SCH (08:22)
[2019-03-09] MEDS: ENOXAPARIN 80MG/0.8ML SYR SUBCUT SCH ×2 (09:00→21:00)
[2019-03-09] MEDS ORDERED: BACTERIOSTATIC SODIUM CHLORIDE 0.9% 30ML VIAL IJ ONE (09:33)
[2019-03-09] MEDS ORDERED: MIDAZOLAM HCL 5 MG/5 ML VIAL IV PRN (15:36)
[2019-03-09] MEDS ORDERED: FENTANYL CITRATE/PF 50MCG/ML 2ML VIAL ONE (15:36)
[2019-03-09] MEDS ORDERED: MIDAZOLAM HCL 5 MG/5 ML VIAL ONE (15:36)
[2019-03-09] MEDS ORDERED: ROCURONIUM BROMIDE 10MG/ML VIAL 5ML IV ONE ×2 (21:29→21:36)
[2019-03-09] MEDS ORDERED: LIDOCAINE HCL/PF 1% 10 MG/ML 5ML VIAL ONE (21:40)
[2019-03-09] MEDS ORDERED: VECURONIUM BROMIDE 10 MG/VIAL IV ONE (21:41)
[2019-03-09] MEDS ORDERED: SODIUM CHLORIDE 0.9% 10ML VIAL ONE (21:41)
[2019-03-09] MEDS ORDERED: MIDAZOLAM HCL 2 MG/2 ML VIAL ONE (21:48)
[2019-03-10] VITALS (49 sets, daily range): BP systolic 89–164; BP diastolic 47–119
[2019-03-10] MEDS: IPRATROPIUM/ALBUTEROL 0.5-3(2.5)MG/3ML NEB HHN SCH ×6 (00:10→20:00)
[2019-03-10] MEDS: METOCLOPRAMIDE HCL 10MG/2ML VIAL IV SCH ×4 (00:54→17:50)
[2019-03-10] MEDS ORDERED: MORPHINE SULFATE 2 MG/ML CPJ (NOT FOR IM USE) IV PRN (01:45)
[2019-03-10] MEDS: AMPICILLIN 1,000 MG in SODIUM CHLORIDE 0.9% 50 ML IV SCH ×3 (06:32→17:50)
[2019-03-10 06:39] LABS: HEMATOCRIT. 35.3 % (42.0-52.0); HEMOGLOBIN. 11.4 g/dL (14.0-18.0); MEAN CORPUSCULAR HEMOGLOBIN 30.3 pg (28.0-32.0); MEAN CORPUSCULAR VOLUME 93.9 fL (80.0-94.0); MEAN PLATELET VOLUME 6.9 fl (7.4-10.4); PLATELET 346 x1000/uL (130-400); RED BLOOD CELL COUNT 3.76 mill/uL (4.7-6.1); RED CELL DISTRIBUTION WIDTH 17.2 % (11.6-14.6)
[2019-03-10 06:49] LABS: CHLORIDE 110 mEq/L (98-107)
[2019-03-10] MEDS: POTASSIUM CHLORIDE INJ 40 MEQ in DEXTROSE 5% WATER 1,000 ML IV SCH (07:24)
[2019-03-10 07:40] LABS: BG BASE EXCESS 0.1 mmol/L (-2.0-2.0); BG CARBOXYHEMOGLOBIN 0.5 % (0.5-1.5); BG DEOXYHEMOGLOBIN 1.4 % (0.0-5.0); BG FRACTION INSPIRED OXYGEN 35; BG HCO3 ACT 23.5 mmol/L (22.0-26.0); BG METHEMOGLOBIN 0.5 % (0.0-1.5); BG OXYGEN SATURATION 98.6 % (92.0-98.5); BG OXYHEMOGLOBIN 97.6 % (94.0-97.0); BG PCO2 33.9 mmHg (35.0-45.0); BG PH 7.458 (7.350-7.450); BG PO2 133.2 mmHg (75.0-100.0); BG SAMPLE SITE RIGHT RADIAL; BG TIDAL VOLUME(mL) 500 mL; BG TOTAL HEMOGLOBIN 12.4 g/dL (12.0-18.0); BG VENT MODE VENT - A/C; BG VENT RATE 10 set
[2019-03-10] MEDS: ENOXAPARIN 80MG/0.8ML SYR SUBCUT SCH ×2 (08:04→21:00)
[2019-03-10] MEDS: FAMOTIDINE 20MG/2ML VIAL IV SCH ×2 (08:06→20:41)
[2019-03-10] MEDS: DOCUSATE SODIUM SUGAR FREE 100MG/10ML UDC NG SCH (08:06)
[2019-03-10] MEDS ORDERED: NOREPINEPHRINE 16 MG in DEXT 5% WATER 234 ML IV PRN (11:00)
[2019-03-10] MEDS: DEXT 5%/0.45% NACL 1000ML 1,000 ML IV SCH (11:17)
[2019-03-10] MEDS ORDERED: LORAZEPAM 2MG/ML CPJ IV PRN (11:45)
[2019-03-10 15:09] LABS: PLATELET ESTIMATE NORMAL
[2019-03-10] MEDS: ACETAMINOPHEN 650MG/20.3ML UDC NG PRN (20:42)
[2019-03-11] VITALS (15 sets, daily range): BP systolic 92–129; BP diastolic 54–79
[2019-03-11] MEDS: DEXT 5%/0.45% NACL 1000ML 1,000 ML IV SCH ×2 (00:05→13:57)
[2019-03-11] MEDS: IPRATROPIUM/ALBUTEROL 0.5-3(2.5)MG/3ML NEB HHN SCH ×6 (00:13→20:13)
[2019-03-11] MEDS: AMPICILLIN 1,000 MG in SODIUM CHLORIDE 0.9% 50 ML IV SCH ×4 (00:31→18:17)
[2019-03-11] MEDS: METOCLOPRAMIDE HCL 10MG/2ML VIAL IV SCH ×4 (00:32→18:17)
[2019-03-11] MEDS: ACETAMINOPHEN 650MG/20.3ML UDC NG PRN ×2 (06:52→20:43)
[2019-03-11 07:53] LABS: CHLORIDE 112 mEq/L (98-107)
[2019-03-11] MEDS: DOCUSATE SODIUM SUGAR FREE 100MG/10ML UDC NG SCH (09:18)
[2019-03-11] MEDS: FAMOTIDINE 20MG/2ML VIAL IV SCH ×2 (09:18→20:42)
[2019-03-11] MEDS: ENOXAPARIN 80MG/0.8ML SYR SUBCUT SCH ×2 (13:57→20:42)
[2019-03-12] VITALS (12 sets, daily range): BP systolic 101–145; BP diastolic 64–94
[2019-03-12] MEDS: IPRATROPIUM/ALBUTEROL 0.5-3(2.5)MG/3ML NEB HHN SCH ×7 (00:11→23:54)
[2019-03-12] MEDS: AMPICILLIN 1,000 MG in SODIUM CHLORIDE 0.9% 50 ML IV SCH ×3 (00:12→11:09)
[2019-03-12] MEDS: METOCLOPRAMIDE HCL 10MG/2ML VIAL IV SCH ×5 (00:12→23:18)
[2019-03-12] MEDS: DEXT 5%/0.45% NACL 1000ML 1,000 ML IV SCH ×2 (04:18→21:11)
[2019-03-12] MEDS: ACETAMINOPHEN 650MG/20.3ML UDC NG PRN (07:54)
[2019-03-12] MEDS: DOCUSATE SODIUM SUGAR FREE 100MG/10ML UDC NG SCH (08:07)
[2019-03-12] MEDS: FAMOTIDINE 20MG/2ML VIAL IV SCH ×2 (08:07→20:39)
[2019-03-12] MEDS: ENOXAPARIN 80MG/0.8ML SYR SUBCUT SCH ×2 (08:08→20:40)
[2019-03-12] MEDS ORDERED: IBUPROFEN 100MG/5ML UDC PEG PRN (11:00)
[2019-03-12 12:22] LABS: HEMATOCRIT. 28.1 % (42.0-52.0); MEAN CORPUSCULAR HEMOGLOBIN 30.3 pg (28.0-32.0); MEAN CORPUSCULAR VOLUME 93.9 fL (80.0-94.0); MEAN PLATELET VOLUME 7.2 fl (7.4-10.4); PLATELET 279 x1000/uL (130-400); RED BLOOD CELL COUNT 2.99 mill/uL (4.7-6.1); RED CELL DISTRIBUTION WIDTH 17.1 % (11.6-14.6)
[2019-03-12] MEDS: ACETYLCYSTEINE 100MG/ML 10% VIAL 4ML INH SCH ×2 (12:42→23:54)
[2019-03-12 13:47] LABS: PLATELET ESTIMATE NORMAL
[2019-03-12] MEDS: PIPERACILLIN/TAZOBACTAM 3.375 G in DEXT 5% WATER 100 ML IV SCH ×3 (14:08→23:18)
[2019-03-12 17:04] LABS: CHLORIDE 113 mEq/L (98-107)
[2019-03-13] VITALS (12 sets, daily range): BP systolic 92–144; BP diastolic 57–103
[2019-03-13] MEDS: ACETAMINOPHEN 650MG/20.3ML UDC NG PRN (00:17)
[2019-03-13] MEDS: IPRATROPIUM/ALBUTEROL 0.5-3(2.5)MG/3ML NEB HHN SCH ×5 (03:50→20:24)
[2019-03-13] MEDS: METOCLOPRAMIDE HCL 10MG/2ML VIAL IV SCH ×4 (06:05→23:33)
[2019-03-13] MEDS: PIPERACILLIN/TAZOBACTAM 3.375 G in DEXT 5% WATER 100 ML IV SCH ×4 (06:05→23:33)
[2019-03-13] MEDS: FAMOTIDINE 20MG/2ML VIAL IV SCH ×2 (08:15→20:41)
[2019-03-13] MEDS: ENOXAPARIN 80MG/0.8ML SYR SUBCUT SCH ×2 (08:16→20:41)
[2019-03-13] MEDS: ACETYLCYSTEINE 100MG/ML 10% VIAL 4ML INH SCH ×2 (08:19→15:50)
[2019-03-13] MEDS: DEXT 5%/0.45% NACL 1000ML 1,000 ML IV SCH (11:25)
[2019-03-13] MEDS: DOCUSATE SODIUM SUGAR FREE 100MG/10ML UDC NG SCH (11:28)
[2019-03-13] MEDS ORDERED: AMPICILLIN 1,000 MG in SODIUM CHLORIDE 0.9% 50 ML IV SCH (11:30)
[2019-03-14] VITALS (12 sets, daily range): BP systolic 104–146; BP diastolic 66–88
[2019-03-14] MEDS: ACETYLCYSTEINE 100MG/ML 10% VIAL 4ML INH SCH ×3 (00:11→16:35)
[2019-03-14] MEDS: IPRATROPIUM/ALBUTEROL 0.5-3(2.5)MG/3ML NEB HHN SCH ×6 (00:11→20:47)
[2019-03-14] MEDS: DEXT 5%/0.45% NACL 1000ML 1,000 ML IV SCH ×2 (01:10→08:54)
[2019-03-14] MEDS: PIPERACILLIN/TAZOBACTAM 3.375 G in DEXT 5% WATER 100 ML IV SCH ×3 (05:21→17:20)
[2019-03-14] MEDS: METOCLOPRAMIDE HCL 10MG/2ML VIAL IV SCH ×3 (05:21→17:20)
[2019-03-14] MEDS: FAMOTIDINE 20MG/2ML VIAL IV SCH ×2 (08:53→21:00)
[2019-03-14] MEDS: DOCUSATE SODIUM SUGAR FREE 100MG/10ML UDC NG SCH (08:53)
[2019-03-14] MEDS: ENOXAPARIN 80MG/0.8ML SYR SUBCUT SCH ×2 (08:54→21:00)
[2019-03-15] VITALS (18 sets, daily range): BP systolic 102–158; BP diastolic 62–96
[2019-03-15] MEDS: ACETYLCYSTEINE 100MG/ML 10% VIAL 4ML INH SCH ×3 (00:48→15:36)
[2019-03-15] MEDS: IPRATROPIUM/ALBUTEROL 0.5-3(2.5)MG/3ML NEB HHN SCH ×6 (00:48→20:16)
[2019-03-15] MEDS: METOCLOPRAMIDE HCL 10MG/2ML VIAL IV SCH ×5 (03:19→23:21)
[2019-03-15] MEDS: PIPERACILLIN/TAZOBACTAM 3.375 G in DEXT 5% WATER 100 ML IV SCH ×5 (03:20→23:22)
[2019-03-15 09:12] LABS: BG BASE EXCESS -0.9 mmol/L (-2.0-2.0); BG CARBOXYHEMOGLOBIN 0.6 % (0.5-1.5); BG FRACTION INSPIRED OXYGEN 35; BG HCO3 ACT 21.9 mmol/L (22.0-26.0); BG METHEMOGLOBIN 0.3 % (0.0-1.5); BG OXYHEMOGLOBIN 98.1 % (94.0-97.0); BG PCO2 28.7 mmHg (35.0-45.0); BG PO2 137.1 mmHg (75.0-100.0); BG PRESSURE SUPPORT 15; BG SAMPLE SITE RIGHT BRACHIAL; BG TIDAL VOLUME(mL) 500 mL; BG TOTAL HEMOGLOBIN 7.9 g/dL (12.0-18.0); BG VENT MODE VENT - SIMV; BG VENT RATE 10 set
[2019-03-15] MEDS: FAMOTIDINE 20MG/2ML VIAL IV SCH (09:15)
[2019-03-15] MEDS: DOCUSATE SODIUM SUGAR FREE 100MG/10ML UDC NG SCH (09:15)
[2019-03-15] MEDS: ENOXAPARIN 80MG/0.8ML SYR SUBCUT SCH ×2 (09:15→21:22)
[2019-03-15] MEDS ORDERED: MORPHINE SULFATE 2 MG/ML CPJ (NOT FOR IM USE) IV PRN (11:00)
[2019-03-15] MEDS ORDERED: LORAZEPAM 2MG/ML CPJ IV PRN (11:00)
[2019-03-15] MEDS: FAMOTIDINE 20MG TABLET GT SCH (21:22)
[2019-03-15] MEDS: DEXT 5%/0.45% NACL 1000ML 1,000 ML IV SCH (21:23)
[2019-03-16] VITALS (18 sets, daily range): BP systolic 103–146; BP diastolic 67–84
[2019-03-16] MEDS: DEXT 5%/0.45% NACL 1000ML 1,000 ML IV SCH ×3 (00:05→12:12)
[2019-03-16] MEDS: IPRATROPIUM/ALBUTEROL 0.5-3(2.5)MG/3ML NEB HHN SCH ×6 (00:59→19:51)
[2019-03-16] MEDS: ACETYLCYSTEINE 100MG/ML 10% VIAL 4ML INH SCH ×3 (01:00→15:43)
[2019-03-16] MEDS: PIPERACILLIN/TAZOBACTAM 3.375 G in DEXT 5% WATER 100 ML IV SCH ×3 (05:46→18:24)
[2019-03-16] MEDS: METOCLOPRAMIDE HCL 10MG/2ML VIAL IV SCH ×3 (05:46→18:24)
[2019-03-16] MEDS: DOCUSATE SODIUM SUGAR FREE 100MG/10ML UDC NG SCH (09:05)
[2019-03-16] MEDS: ENOXAPARIN 80MG/0.8ML SYR SUBCUT SCH ×2 (09:06→20:20)
[2019-03-16] MEDS: FAMOTIDINE 20MG TABLET GT SCH (20:19)
== END 2019-03-16 23:15 | DRG 3 ==
LOC: ER 23:41 → CVICU 02-26 01:10 → ENRESERV 02-26 01:49 → 6EST 02-27 13:30 → CVICU 02-27 13:31 → 5EST 03-10 13:38
PROVIDERS: ADMIT Internal Medicine; ATTEND Internal Medicine
PROC: 5A1955Z Respiratory Ventilation, Greater than 96 Consecutive Hours (ICD-10-PCS; principal; 2019-02-26)
PROC: 0BH17EZ Insertion of Endotracheal Airway into Trachea, Via Natural or Artificial Opening (ICD-10-PCS; 2019-02-26)
PROC: 05HY33Z Insertion of Infusion Device into Upper Vein, Percutaneous Approach (ICD-10-PCS; 2019-03-03)
PROC: B54NZZA Ultrasonography of Left Upper Extremity Veins, Guidance (ICD-10-PCS; 2019-03-03)
PROC: 4A10X4Z Monitoring of Central Nervous Electrical Activity, External Approach (ICD-10-PCS; 2019-03-04)
PROC: 0B110F4 Bypass Trachea to Cutaneous with Tracheostomy Device, Open Approach (ICD-10-PCS; 2019-03-09)
PROC: 0GBJ0ZZ Excision of Thyroid Gland Isthmus, Open Approach (ICD-10-PCS; 2019-03-09)
PROC: 0DH63UZ Insertion of Feeding Device into Stomach, Percutaneous Approach (ICD-10-PCS; 2019-03-09)
DX: A41.81 Sepsis due to Enterococcus (principal); J96.00 Acute respiratory failure, unspecified whether with hypoxia or hypercapnia; G93.41 Metabolic encephalopathy; I50.23 Acute on chronic systolic (congestive) heart failure; I63.9 Cerebral infarction, unspecified; J15.5 Pneumonia due to Escherichia coli; D68.59 Other primary thrombophilia; N17.9 Acute kidney failure, unspecified; G93.49 Other encephalopathy; G93.1 Anoxic brain damage, not elsewhere classified; N39.0 Urinary tract infection, site not specified; Z99.11 Dependence on respirator [ventilator] status; I82.411 Acute embolism and thrombosis of right femoral vein; I25.5 Ischemic cardiomyopathy; G47.33 Obstructive sleep apnea (adult) (pediatric); I11.0 Hypertensive heart disease with heart failure; I08.0 Rheumatic disorders of both mitral and aortic valves; M25.561 Pain in right knee; M25.562 Pain in left knee; L89.110 Pressure ulcer of right upper back, unstageable; K44.9 Diaphragmatic hernia without obstruction or gangrene; K29.70 Gastritis, unspecified, without bleeding; I27.20 Pulmonary hypertension, unspecified; F10.21 Alcohol dependence, in remission; I48.91 Unspecified atrial fibrillation; I25.10 Atherosclerotic heart disease of native coronary artery without angina pectoris; Z95.1 Presence of aortocoronary bypass graft; Z95.0 Presence of cardiac pacemaker; Z79.01 Long term (current) use of anticoagulants; Z86.73 Personal history of transient ischemic attack (TIA), and cerebral infarction without residual deficits; Z78.1 Physical restraint status
CPT/HCPCS: 36415; 36600; 71045; 71275; 76937; 78580; 80048; 80305; 80320; 81003; 82140; 82375; 82805; 82962; 83721; 83735; 83880; 84134; 84443; 84478; 84484; 85027; 86850; 86900; 87070; 87077; 87186; 93005; 93306; 93970; 93971; 94002; 94003; 94640; 96374; 96375; 99291; C1725; J0290; J0330; J0456; J0696; J1650; J1940; J1956; J2060; J2250; J2543; J2704; J2765; J3010; J3475; J3480; J3490; J7030; J7060; J7070; J7608; J7620; Q9967; G0480